=== PATIENT | male | born 1980 | race Caucasian/White ===

== ENCOUNTER 2022-01-04 01:24 | Inpatient (IN) ==
--- NOTE | 2022-01-04 01:58 | Emergency Department Note ---
Impression & Plan Suicidal ideation ADMIT ED Provider Note HPI: Patient is a 41-year-old male with history of schizoaffective disorder, hypertension, arthritis, GERD, presents emergency department after a suicide attempt this evening. Patient tells me that he tried to strangle himself twice with the drawstring from his sweatpants. He states he [facility] this [facility] the [facility]. He called crisis because he tried to do this and was referred to the ED for further evaluation. Patient arrives in stable condition, he does not have any ligature hidalgo to the neck, no open wounds or lacerations, he is resting comfortably on my initial assessment and is calm and cooperative with history. He tells me he does believe he would benefit from inpatient care. He is currently voluntary 201 in the ED. ROS: -Psychiatric: Suicide attempt. *10 point review systems was conducted and is otherwise negative unless stated above *Outpatient medications and allergy history reviewed PE: General: Alert, NAD, obese HEENT: Normocephalic, atraumatic Eyes: Extraocular eye movement is intact, no scleral erythema Pulmonary: Clear to auscultation bilaterally, no wheezing Cardio: Regular rate and rhythm GI: Abdomen is soft, nontender : No suprapubic tenderness MSK: No evidence of trauma or malformation of the extremities, no edema Skin: No evidence of rash Neuro: Alert, no focal deficits Psychiatric: Cooperative Medical Decision Making: Patient presented to the emergency department with a chief complaint of suicidal ideation and he reports an attempt earlier tonight, states that he attempted to strangle himself with a drawstring from his sweatpants. On arrival here to the ED he appears well, he is in no acute distress, he does not have any evidence of injuries to his neck, he is resting comfortably on my initial assessment and is in no acute distress. Patient was medically cleared here in the ED for case management assessment, patient is determined appropriate for voluntary admission, patient was assessed for placement at 3 [address]. and ultimately excepted for further inpatient care. He is in agreement to the above plan and he was admitted in stable condition for further management/inpatient psychiatric care. Diagnosis: 1. Suicide attempt 2. History of schizoaffective disorder Disposition: Admission to psychiatry Gianni Abebe DO Emergency Medicine Past Med/Surg History Medical History (Updated 01/04/22 @ 07:32 by Gianni Abebe DO) GERD (gastroesophageal reflux disease) Hypertension Social History Smoking Status: Unknown if ever smoked Preferred Language: Mongolian Communication Ability: Effective Environmental Compliance Specialist Required: No Beliefs That Will Affect Care: None Feels Safe at Home: Yes Assistive Devices: Glasses Allergies Allergies Allergy/AdvReac Type Severity Reaction Status Date / Time No Known Allergies Allergy Unknown Verified 01/07/08 18:16 Home Meds Home Medications Medication Instructions Recorded Confirmed amlodipine 10 mg tablet 10 mg PO QAM 01/04/22 01/04/22 divalproex 500 mg tablet,extended 500 mg PO QAM 01/04/22 01/04/22 release 24 hr omeprazole 20 mg capsule,delayed 20 mg PO AMHS 01/04/22 01/04/22 release paliperidone palmitate 156 mg/mL 156 mg IM MONTHLY 01/04/22 01/04/22 intramuscular syringe (Invega Sustenna) venlafaxine 75 mg capsule,extended 225 mg PO HS 01/04/22 01/04/22 release 24 hr Results & Data (ED) Vital Signs Vital Signs - 24 hr 01/04/22 01:41 01/04/22 05:12 Temperature 36.6 C Temperature Source Oral Pulse Rate 89 Pulse Rate [Right] 75 Respiratory Rate 20 16 Respiratory Effort / Characteristics Non-Labored Respiratory Depth Normal Blood Pressure [Right Arm] 141/78 H Blood Pressure Mean [Right Arm] 99 Pulse Oximetry 96 94 Oxygen Delivery Method Room Air Room Air Sepsis Recent Fever Within 48 Hours No Sepsis New/Unexplained Change in Mental Status N/A Sepsis Action Taken by Nursing No Action Required Laboratory Data Result diagrams: 01/04/22 01:56 01/04/22 01:56 Lab Results 01/04/22 01/04/22 01/04/22 Range/Units 01:40 01:40 01:56 WBC 7.80 (4.8-10.8) K/uL RBC 4.30 L (4.7-6.1) M/uL Hgb 14.8 (14.0-18.0) g/dL Hct 43.3 (42-52) % MCV 100.7 H (80-100) fL MCH 34.4 H (25-34) pg MCHC 34.2 (32-36) g/dL RDW Std Deviation 46.8 H (36.4-46.3) fL RDW Coeff of Zay 12.9 (11.5-14.5) % Plt Count 287 (130-400) K/uL MPV 9.3 (7.4-10.4) fL Immature Gran % (Auto) 0.1 % Neut % (Auto) 60.2 % Lymph % (Auto) 24.6 % Republic % (Auto) 12.7 % Eos % (Auto) 2.1 % Baso % (Auto) 0.3 % Neut # (Auto) 4.70 (1.4-6.5) K/uL Lymph # (Auto) 1.92 (1.2-3.4) K/uL Republic # (Auto) 0.99 H (0.11-0.59) K/uL Eos # (Auto) 0.16 (0-0.5) K/uL Baso # (Auto) 0.02 (0-0.2) K/uL Immature Gran # (Auto) 0.01 (0.00-0.02) K/uL Sodium (136-145) mmol/L Potassium (3.5-5.1) mmol/L Chloride (98-107) mmol/L Carbon Dioxide (21-32) mmol/L Anion Gap (3-11) BUN (6-23) mg/dl Creatinine (0.6-1.4) mg/dl Est Cr Clr Drug Dosing ml/min Est GFR ( Amer) ml/min Est GFR (Non-Af Amer) ml/min BUN/Creatinine Ratio (10-20) Glucose (70-99(Fasting)) mg/dl Calcium (8.5-10.1) mg/dl Total Bilirubin (0.2-1.0) mg/dl AST (13-39) U/L ALT (7-52) U/L Alkaline Phosphatase (34-104) U/L Total Protein (6.0-8.3) gm/dl Albumin (3.4-5.0) gm/dl Globulin (2.5-4.0) gm/dl Albumin/Globulin Ratio (0.9-2) TSH (0.300-4.500) uIu/ml Urine Color Yellow Urine Appearance Clear (Clear) Urine pH 5.5 (4.5-7.5) Ur Specific Gilbert 1.011 (1.000-1.030) Urine Protein Negative (Negative) Urine Glucose (UA) Negative (Negative) Urine Ketones Negative (Negative) Urine Blood Negative (Negative) Urine Nitrite Negative (Negative) Urine Bilirubin Negative (Negative) Urine Urobilinogen Negative (Negative) Ur Leukocyte Esterase Negative (Negative) Salicylates (3.0-30) mg/dl Urine Opiates Screen Neg (Neg) Ur Methadone, Qual Neg (Neg) Acetaminophen (10-30) ug/ml Urine Barbiturates Neg (Neg) Ur Phencyclidine (PCP) Neg (Neg) U Amphetamin/Meth Scrn Neg (Neg) MDMA (Ecstasy) Screen Neg (Neg) U Benzodiazepines Scrn Neg (Neg) Ur Cocaine Metabolite Neg (Neg) U Marijuana (THC) Screen Neg (Neg) Ethyl Alcohol mg/dL (<10.0) mg/dl 01/04/22 01/04/22 01/04/22 Range/Units 01:56 01:56 01:56 WBC (4.8-10.8) K/uL RBC (4.7-6.1) M/uL Hgb (14.0-18.0) g/dL Hct (42-52) % MCV (80-100) fL MCH (25-34) pg MCHC (32-36) g/dL RDW Std Deviation (36.4-46.3) fL RDW Coeff of Zay (11.5-14.5) % Plt Count (130-400) K/uL MPV (7.4-10.4) fL Immature Gran % (Auto) % Neut % (Auto) % Lymph % (Auto) % Republic % (Auto) % Eos % (Auto) % Baso % (Auto) % Neut # (Auto) (1.4-6.5) K/uL Lymph # (Auto) (1.2-3.4) K/uL Republic # (Auto) (0.11-0.59) K/uL Eos # (Auto) (0-0.5) K/uL Baso # (Auto) (0-0.2) K/uL Immature Gran # (Auto) (0.00-0.02) K/uL Sodium 134 L (136-145) mmol/L Potassium 3.7 (3.5-5.1) mmol/L Chloride 102 (98-107) mmol/L Carbon Dioxide 24 (21-32) mmol/L Anion Gap 8 (3-11) BUN 13 (6-23) mg/dl Creatinine 1.07 (0.6-1.4) mg/dl Est Cr Clr Drug Dosing 149.5 ml/min Est GFR ( Amer) 98.0 ml/min Est GFR (Non-Af Amer) 84.6 ml/min BUN/Creatinine Ratio 12.1 (10-20) Glucose 93 (70-99(Fasting)) mg/dl Calcium 8.8 (8.5-10.1) mg/dl Total Bilirubin 0.7 (0.2-1.0) mg/dl AST 15 (13-39) U/L ALT 17 (7-52) U/L Alkaline Phosphatase 70 (34-104) U/L Total Protein 6.8 (6.0-8.3) gm/dl Albumin 3.9 (3.4-5.0) gm/dl Globulin 2.9 (2.5-4.0) gm/dl Albumin/Globulin Ratio 1.3 (0.9-2) TSH 2.428 (0.300-4.500) uIu/ml Urine Color Urine Appearance (Clear) Urine pH (4.5-7.5) Ur Specific Gilbert (1.000-1.030) Urine Protein (Negative) Urine Glucose (UA) (Negative) Urine Ketones (Negative) Urine Blood (Negative) Urine Nitrite (Negative) Urine Bilirubin (Negative) Urine Urobilinogen (Negative) Ur Leukocyte Esterase (Negative) Salicylates < 3.0 L (3.0-30) mg/dl Urine Opiates Screen (Neg) Ur Methadone, Qual (Neg) Acetaminophen < 3 L (10-30) ug/ml Urine Barbiturates (Neg) Ur Phencyclidine (PCP) (Neg) U Amphetamin/Meth Scrn (Neg) MDMA (Ecstasy) Screen (Neg) U Benzodiazepines Scrn (Neg) Ur Cocaine Metabolite (Neg) U Marijuana (THC) Screen (Neg) Ethyl Alcohol mg/dL (<10.0) mg/dl 01/04/22 Range/Units 01:56 WBC (4.8-10.8) K/uL RBC (4.7-6.1) M/uL Hgb (14.0-18.0) g/dL Hct (42-52) % MCV (80-100) fL MCH (25-34) pg MCHC (32-36) g/dL RDW Std Deviation (36.4-46.3) fL RDW Coeff of Zay (11.5-14.5) % Plt Count (130-400) K/uL MPV (7.4-10.4) fL Immature Gran % (Auto) % Neut % (Auto) % Lymph % (Auto) % Republic % (Auto) % Eos % (Auto) % Baso % (Auto) % Neut # (Auto) (1.4-6.5) K/uL Lymph # (Auto) (1.2-3.4) K/uL Republic # (Auto) (0.11-0.59) K/uL Eos # (Auto) (0-0.5) K/uL Baso # (Auto) (0-0.2) K/uL Immature Gran # (Auto) (0.00-0.02) K/uL Sodium (136-145) mmol/L Potassium (3.5-5.1) mmol/L Chloride (98-107) mmol/L Carbon Dioxide (21-32) mmol/L Anion Gap (3-11) BUN (6-23) mg/dl Creatinine (0.6-1.4) mg/dl Est Cr Clr Drug Dosing ml/min Est GFR ( Amer) ml/min Est GFR (Non-Af Amer) ml/min BUN/Creatinine Ratio (10-20) Glucose (70-99(Fasting)) mg/dl Calcium (8.5-10.1) mg/dl Total Bilirubin (0.2-1.0) mg/dl AST (13-39) U/L ALT (7-52) U/L Alkaline Phosphatase (34-104) U/L Total Protein (6.0-8.3) gm/dl Albumin (3.4-5.0) gm/dl Globulin (2.5-4.0) gm/dl Albumin/Globulin Ratio (0.9-2) TSH (0.300-4.500) uIu/ml Urine Color Urine Appearance (Clear) Urine pH (4.5-7.5) Ur Specific Gilbert (1.000-1.030) Urine Protein (Negative) Urine Glucose (UA) (Negative) Urine Ketones (Negative) Urine Blood (Negative) Urine Nitrite (Negative) Urine Bilirubin (Negative) Urine Urobilinogen (Negative) Ur Leukocyte Esterase (Negative) Salicylates (3.0-30) mg/dl Urine Opiates Screen (Neg) Ur Methadone, Qual (Neg) Acetaminophen (10-30) ug/ml Urine Barbiturates (Neg) Ur Phencyclidine (PCP) (Neg) U Amphetamin/Meth Scrn (Neg) MDMA (Ecstasy) Screen (Neg) U Benzodiazepines Scrn (Neg) Ur Cocaine Metabolite (Neg) U Marijuana (THC) Screen (Neg) Ethyl Alcohol mg/dL < 10.0 (<10.0) mg/dl Discharge Plan Visit Data Chief Complaint: Mental Health Evaluation Stated Complaint: [facility] ED Provider: Gianni Abebe Discharge Problem: Suicidal ideation Patient Disposition: Admitted As Inpatient Discharge Instructions Interventions: ED Discharge Assessment Last Done: 01/04/22 06:38
[2022-01-04 02:09] LABS: Appearance Urine Clear (Clear); Bilirubin Urine Negative (Negative); Blood Urine Negative (Negative); Color Urine Yellow; Glucose Urine UA Negative (Negative); Ketones Urine Negative (Negative); Leukocyte Esterase Urine Negative (Negative); Nitrite Urine Negative (Negative); Protein Urine Negative (Negative); Specific Gravity Urine 1.011 (1.000-1.030); Urobilinogen Urine Negative (Negative); pH Urine 5.5 (4.5-7.5)
[2022-01-04 02:10] LABS: Basophils # (auto) 0.02 K/uL (0-0.2); Basophils % (auto) 0.3 %; Eosinophils # (auto) 0.16 K/uL (0-0.5); Eosinophils % (auto) 2.1 %; Hematocrit (blood only) 43.3 % (42-52); Hemoglobin 14.8 g/dL (14.0-18.0); Immature Granulocytes # (auto) 0.01 K/uL (0.00-0.02); Immature Granulocytes % (auto) 0.1 %; Lymphocytes # (auto) 1.92 K/uL (1.2-3.4); Lymphocytes % (auto) 24.6 %; Mean Corpuscular Hemoglobin 34.4 pg (25-34); Mean Corpuscular Hgb Conc 34.2 g/dL (32-36); Mean Corpuscular Volume 100.7 fL (80-100); Mean Platelet Volume 9.3 fL (7.4-10.4); Monocytes # (auto) 0.99 K/uL (0.11-0.59); Monocytes % (auto) 12.7 %; Neutrophils % (auto) 60.2 %; Platelet Count 287 K/uL (130-400); RDW Coefficient of Variation 12.9 % (11.5-14.5); RDW Standard Deviation 46.8 fL (36.4-46.3)
[2022-01-04 02:25] LABS: Albumin Globulin Ratio 1.3 (0.9-2); Albumin Level 3.9 gm/dl (3.4-5.0); BUN Creatinine Ratio 12.1 (10-20); Bilirubin,Total 0.7 mg/dl (0.2-1.0); Calcium 8.8 mg/dl (8.5-10.1); Creatinine Clr Calc Pharmacy 149.5 ml/min; Est GFR (Non-African American) 84.6 ml/min; Globulin 2.9 gm/dl (2.5-4.0); Potassium 3.7 mmol/L (3.5-5.1); Total Protein 6.8 gm/dl (6.0-8.3)
[2022-01-04 02:26] LABS: Acetaminophen < 3 ug/ml (10-30); Salicylate < 3.0 mg/dl (3.0-30)
[2022-01-04 02:28] LABS: Amphetamines+Metham, Urine Neg (Neg); Barbiturates, Urine Neg (Neg); Benzodiazepine, Urine Neg (Neg); Cocaine, Urine Neg (Neg); MDMA (Ecstacy), Urine Neg (Neg); Methadone, Urine Neg (Neg); Opiate, Urine Neg (Neg); Phencyclidine, Urine Neg (Neg)
[2022-01-04] MEDS ORDERED: hydrOXYzine HCl 25 MG TAB PO PRN ×2 (07:11)
[2022-01-04] MEDS ORDERED: BISMUTH SUBSALICYLATE LIQD 236 ML PO PRN (07:11)
[2022-01-04] MEDS ORDERED: ALUMINUM/MAGNESIUM SUSP 30 ML UDC PO PRN (07:11)
[2022-01-04] MEDS ORDERED: ACETAMINOPHEN 325 MG TAB PO PRN (07:11)
[2022-01-04] MEDS ORDERED: MAGNESIUM HYDROXIDE SUSP 30 ML UDC PO PRN (07:11)
[2022-01-04] MEDS ORDERED: SODIUM CHLORIDE 0.65% NA SOLN 45 ML (OCEAN) PRN (07:11)
[2022-01-04] MEDS: PANTOprazole 40 MG TAB PO SCH ×2 (12:50→20:48)
[2022-01-04] MEDS: DIVALPROEX EXTENDED RELEASE 500 MG TAB PO SCH (12:50)
[2022-01-04] MEDS: amLODIPine BESYLATE 5 MG TAB PO SCH (12:51)
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
[2022-01-04] MEDS: VENLAFAXINE HCL XR 75 MG CAPXR PO SCH (20:48)
[2022-01-04] MEDS: DIVALPROEX EXTENDED RELEASE 250 MG TABCR PO SCH (20:48)
[2022-01-05] MEDS: DIVALPROEX EXTENDED RELEASE 500 MG TAB PO SCH (09:00)
[2022-01-05] MEDS: PANTOprazole 40 MG TAB PO SCH ×2 (09:01→21:17)
[2022-01-05] MEDS: amLODIPine BESYLATE 5 MG TAB PO SCH (09:01)
--- NOTE | 2022-01-05 16:36 | Psychiatric Progress Note ---
Date of Service January 05, 2022 Impression / Recommendations Impression 41 yo male with schizoaffective disorder, reactive depression 01/05/22: no change (1) Schizoaffective disorder: (2) Morbid obesity: 01/05/22: continue current meds and treatment plan. 01/04/22: The patient was admitted to the [facility] ([facility] health unit) on q15 min checks (behavioral with suicide precautions) for safety. The patient will participate in group, recreational, and milieu therapies and will be offered additional individual and family sessions as clinically appropriate. Risks/benefits/alternatives reviewed re: his current medications. Discussion included but was not limited to need for longer term monitoring with Depakote and Invega (received sustenna on 12/17/21), particularly for TD and metabolic. As he missed several doses of Depakote within the last 5 days will wait to get level and add metabolic screenings at that time. He should have PCP f/u for consideration for repeat sleep study. Risk Factors Assessment Male: Yes : Yes Do You Have Access To A Gun?: No Mental Health Diagnoses: Yes Substance Use Disorders: No Previous Attempt: Yes Previous Psychiatric Hospitalization: Yes Protective Factors Assessment Responsible for Young Children: No Employed: No Stable Relationships: No Interval History Identifying Information ROBERTO CAMARILLO is a 41-year-old M, resident of [place], has a history of multiple hospitalizations for schizoaffective disorder, and was admitted on 01/04/22 06:23 on a 201 voluntary commitment for suicidal gesture. Chief Complaint "I'm pretty much the same." Review of Systems Sleep Information Total Hours of Sleep: 6.5 Sleep Comments: pt on q-15 minute checks Meal Information Percent Meal Consumed - Breakfast: 100 Percent Meal Consumed - Lunch: 100 Percent Meal Consumed - Dinner: 100 Subjective Subjective Patient was seen & assessed and interval progress reviewed with treatment team. Patient has difficulty connecting with co--patients but no true peers on unit at this time. Remains hopeless about his housing situation. Med compliant. Physical Exam Psychiatric Orientation: alert and oriented x 3 Apperance: + disheveled Eye Contact: + fair eye contact Motor Behavior: no abnormal motor movements Speech: normal rate/rhythm/volume of speech Affect: + depressed affect Mood: + depressed mood Thought Process: + concrete thought process Thought Content: reality based without delusions Suicidal Thoughts: denies suicidal plan and denies suicidal intent; + reports suicidal thoughts (passive, intermittent) Homicidal Thoughts: denies homicidal thoughts Hallucinations: no auditory hallucinations and no visual hallucinations Cognition: attention grossly intact and language grossly intact Estimated Intelligence: + below average estimated intelligence Insight: + limited insight Judgement: + limited judgement Vital Signs (Past 24 Hours) Last Vital Signs Temp 37 C 01/05/22 06:42 Pulse 79 01/05/22 06:43 Resp 18 01/05/22 06:42 BP 138/82 01/05/22 06:43 Pulse Ox 94 01/04/22 07:18 Results & Data ([facility]) Current Inpatient Medications Current Inpatient Medications: Current Inpatient Medications Acetaminophen (Acetaminophen 325 Mg Tab) 650 mg PO Q4H PRN PRN Reason: Headache or Minor Fever Stop: 02/03/22 07:10 Al Hydrox/Mg Hydrox/Simethicone (Aluminum/Magnesium Susp 30 Ml Udc) 30 ml PO Q4H PRN PRN Reason: GI Upset Stop: 02/03/22 07:10 Amlodipine Besylate (Amlodipine Besylate 5 Mg Tab) 10 mg PO QAM JULISSA Stop: 02/03/22 11:59 Last Admin: 01/05/22 09:01 Dose: 10 mg Documented by: Bismuth Subsalicylate (Bismuth Subsalicylate Liqd 236 Ml) 15 ml PO PRN PRN PRN Reason: Loose Stool Stop: 02/03/22 07:10 Divalproex Sodium (Divalproex Extended Release 500 Mg Tab) 500 mg PO QAM JULISSA Stop: 02/03/22 11:59 Last Admin: 01/05/22 09:00 Dose: 500 mg Documented by: Divalproex Sodium (Divalproex Extended Release 250 Mg Tabcr) 750 mg PO HS JULISSA Stop: 02/03/22 21:59 Last Admin: 01/04/22 20:48 Dose: 750 mg Documented by: Hydroxyzine HCl (Hydroxyzine Hcl 25 Mg Tab) 50 mg PO HSZ PRN PRN Reason: Insomnia Stop: 02/03/22 07:10 Hydroxyzine HCl (Hydroxyzine Hcl 25 Mg Tab) 25 mg PO Q4H PRN PRN Reason: Anxiety Stop: 02/03/22 07:10 Magnesium Hydroxide (Magnesium Hydroxide Susp 30 Ml Udc) 30 ml PO DAILY PRN PRN Reason: Constipation Stop: 02/03/22 07:10 Pantoprazole Sodium (Pantoprazole 40 Mg Tab) 40 mg PO BID JULISSA Stop: 02/03/22 11:59 Last Admin: 01/05/22 09:01 Dose: 40 mg Documented by: Sodium Chloride (Sodium Chloride 0.65% Na Soln 45 Ml ([place])) 1 - 2 sprays NA PRN PRN PRN Reason: Nasal Dryness/Congestion Stop: 02/03/22 07:10 Venlafaxine HCl (Venlafaxine Hcl Xr 75 Mg Capxr) 225 mg PO HS JULISSA Stop: 02/03/22 21:59 Last Admin: 01/04/22 20:48 Dose: 225 mg Documented by: Mental Health & Subst Abuse Tx Psychiatrist Name of Psychiatrist: Stiven Gavin PA-C Psychiatrist's Date of Appointment with Psychiatrist: 01/12/22 Time of Appointment with Psychiatrist: 9:00am Psychiatric Appointment Comment: [facility] Therapist Name of Therapist: None current Surveillance Director Name of Surveillance Director: MATHEW Spann Phone Number for Surveillance Director: [phone] Post Discharge Appointments Primary Care Physician Name Of Family Doctor: David Estrada Primary Care Date of Appointment with PCP: 01/13/22 Time of Appointment with PCP: 9:25 a.m. Provider Appointment Comment: [facility] Contact Information Discharge Discharge Address: [address] [place] [address]
[2022-01-05] MEDS ORDERED: NICOTINE POLACRILEX 2 MG GUM MT PRN (17:12)
[2022-01-05] MEDS: NICOTINE POLACRILEX 2 MG GUM MT PRN (20:51)
[2022-01-05] MEDS: DIVALPROEX EXTENDED RELEASE 250 MG TABCR PO SCH (21:17)
[2022-01-05] MEDS: VENLAFAXINE HCL XR 75 MG CAPXR PO SCH (21:18)
[2022-01-06] MEDS: amLODIPine BESYLATE 5 MG TAB PO SCH (08:25)
[2022-01-06] MEDS: DIVALPROEX EXTENDED RELEASE 500 MG TAB PO SCH (08:26)
[2022-01-06] MEDS: PANTOprazole 40 MG TAB PO SCH ×2 (08:26→21:07)
--- NOTE | 2022-01-06 12:02 | Psychiatric Progress Note ---
Date of Service January 06, 2022 Impression / Recommendations Impression 41 yo male with schizoaffective disorder, reactive depression 01/06/22: some improvement in interpersonal interactions (1) Schizoaffective disorder: (2) Morbid obesity: 01/06/22: Depakote level and fasting labs in the am. 01/05/22: continue current meds and treatment plan. 01/04/22: The patient was admitted to the [facility] on q15 min checks (behavioral with suicide precautions) for safety. The patient will participate in group, recreational, and milieu therapies and will be offered additional individual and family sessions as clinically appropriate. Risks/benefits/alternatives reviewed re: his current medications. Discussion included but was not limited to need for longer term monitoring with Depakote and Invega (received sustenna on 12/17/21), particularly for TD and metabolic. As he missed several doses of Depakote within the last 5 days will wait to get level and add metabolic screenings at that time. He should have PCP f/u for consideration for repeat sleep study. Suicide Risk Level Suicide Risk Level: Moderate (q15 min suicide checks) Risk Factors Assessment Male: Yes : Yes Do You Have Access To A Gun?: No Mental Health Diagnoses: Yes Substance Use Disorders: No Previous Attempt: Yes Previous Psychiatric Hospitalization: Yes Protective Factors Assessment Responsible for Young Children: No Employed: No Stable Relationships: No Interval History Identifying Information ROBERTO CAMARILLO is a 41-year-old M, resident of [place], has a history of multiple hospitalizations for schizoaffective disorder, and was admitted on 01/04/22 06:23 on a 201 voluntary commitment for suicidal gesture. Chief Complaint "I'm tired today, just want to know about my cat". Review of Systems Sleep Information Total Hours of Sleep: 6 Sleep Comments: pt on q-15 minute checks Meal Information Percent Meal Consumed - Breakfast: 100 Percent Meal Consumed - Lunch: 100 Percent Meal Consumed - Dinner: 100 Subjective Subjective Patient was seen & assessed and interval progress reviewed with nursing and social work. Patient in bed this am rather than community meeting but was more active last evening. He has been having incontinence of stool in his bed per staff but he denies. Physical Exam Psychiatric Orientation: alert and oriented x 3 Apperance: + disheveled Eye Contact: + fair eye contact Motor Behavior: no abnormal motor movements Speech: normal rate/rhythm/volume of speech Affect: + depressed affect Mood: + depressed mood Thought Process: + concrete thought process Thought Content: reality based without delusions Suicidal Thoughts: denies suicidal thoughts ("but really outside of here nothing has changed"), denies suicidal plan and denies suicidal intent Homicidal Thoughts: denies homicidal thoughts Hallucinations: no auditory hallucinations and no visual hallucinations Cognition: attention grossly intact and language grossly intact Estimated Intelligence: + below average estimated intelligence Insight: + limited insight Judgement: + limited judgement Vital Signs (Past 24 Hours) Last Vital Signs Temp 36.9 C 01/06/22 06:51 Pulse 66 01/06/22 06:51 Resp 16 01/06/22 06:51 BP 136/95 01/06/22 06:51 Pulse Ox 94 01/04/22 07:18 Results & Data ([facility]) Current Inpatient Medications Current Inpatient Medications: Current Inpatient Medications Acetaminophen (Acetaminophen 325 Mg Tab) 650 mg PO Q4H PRN PRN Reason: Headache or Minor Fever Stop: 02/03/22 07:10 Al Hydrox/Mg Hydrox/Simethicone (Aluminum/Magnesium Susp 30 Ml Udc) 30 ml PO Q4H PRN PRN Reason: GI Upset Stop: 02/03/22 07:10 Amlodipine Besylate (Amlodipine Besylate 5 Mg Tab) 10 mg PO QAM JULISSA Stop: 02/03/22 11:59 Last Admin: 01/06/22 08:25 Dose: 10 mg Documented by: Bismuth Subsalicylate (Bismuth Subsalicylate Liqd 236 Ml) 15 ml PO PRN PRN PRN Reason: Loose Stool Stop: 02/03/22 07:10 Divalproex Sodium (Divalproex Extended Release 500 Mg Tab) 500 mg PO QAM JULISSA Stop: 02/03/22 11:59 Last Admin: 01/06/22 08:26 Dose: 500 mg Documented by: Divalproex Sodium (Divalproex Extended Release 250 Mg Tabcr) 750 mg PO HS JULISSA Stop: 02/03/22 21:59 Last Admin: 01/05/22 21:17 Dose: 750 mg Documented by: Hydroxyzine HCl (Hydroxyzine Hcl 25 Mg Tab) 50 mg PO HSZ PRN PRN Reason: Insomnia Stop: 02/03/22 07:10 Hydroxyzine HCl (Hydroxyzine Hcl 25 Mg Tab) 25 mg PO Q4H PRN PRN Reason: Anxiety Stop: 02/03/22 07:10 Magnesium Hydroxide (Magnesium Hydroxide Susp 30 Ml Udc) 30 ml PO DAILY PRN PRN Reason: Constipation Stop: 02/03/22 07:10 Nicotine Polacrilex (Nicotine Polacrilex 2 Mg Gum) 1 piece MT Q1H PRN PRN Reason: Smoking cessation Stop: 02/04/22 17:41 Last Admin: 01/05/22 20:51 Dose: 1 piece Documented by: Pantoprazole Sodium (Pantoprazole 40 Mg Tab) 40 mg PO BID JULISSA Stop: 02/03/22 11:59 Last Admin: 01/06/22 08:26 Dose: 40 mg Documented by: Sodium Chloride (Sodium Chloride 0.65% Na Soln 45 Ml ([place])) 1 - 2 sprays NA PRN PRN PRN Reason: Nasal Dryness/Congestion Stop: 02/03/22 07:10 Venlafaxine HCl (Venlafaxine Hcl Xr 75 Mg Capxr) 225 mg PO HS JULISSA Stop: 02/03/22 21:59 Last Admin: 01/05/22 21:18 Dose: 225 mg Documented by: Mental Health & Subst Abuse Tx Psychiatrist Name of Psychiatrist: Stiven Gavin PA-C Psychiatrist's Date of Appointment with Psychiatrist: 01/12/22 Time of Appointment with Psychiatrist: 9:00am Psychiatric Appointment Comment: [address] [facility] Therapist Name of Therapist: None current Technical Communicator Name of Technical Communicator: MATHEW Spann Phone Number for Technical Communicator: [phone] Post Discharge Appointments Primary Care Physician Name Of Family Doctor: David Estrada Primary Care Date of Appointment with PCP: 01/13/22 Time of Appointment with PCP: 9:25 a.m. Provider Appointment Comment: [address] Contact Information Discharge Discharge Address: [address] [place] [address]
[2022-01-06] MEDS: VENLAFAXINE HCL XR 75 MG CAPXR PO SCH (21:06)
[2022-01-06] MEDS: DIVALPROEX EXTENDED RELEASE 250 MG TABCR PO SCH (21:07)
[2022-01-07 08:31] LABS: Chol HDL Ratio 4.5 (0-5)
[2022-01-07] MEDS: amLODIPine BESYLATE 5 MG TAB PO SCH (08:32)
[2022-01-07] MEDS: PANTOprazole 40 MG TAB PO SCH ×2 (08:33→21:43)
[2022-01-07] MEDS: DIVALPROEX EXTENDED RELEASE 500 MG TAB PO SCH (08:33)
--- NOTE | 2022-01-07 13:15 | Psychiatric Progress Note ---
Date of Service January 07, 2022 Impression / Recommendations Impression 41 yo male with schizoaffective disorder, reactive depression 01/07/22: more depressed today. (1) Schizoaffective disorder: (2) Morbid obesity: 01/07/22: Depakote level 53, may have been a day 4 trough rather than day 5, regardless patient has not been exhibiting irritability or lability, mainly depression. Remains ambivalent about antidepressant trial. Reviewed that Dr. Kee can provide a second opinion to him tomorrow as assuming coverage for service at 1700. 01/06/22: Depakote level and fasting labs in the am. 01/05/22: continue current meds and treatment plan. 01/04/22: The patient was admitted to the [facility] ([facility] health unit) on q15 min checks (behavioral with suicide precautions) for safety. The patient will participate in group, recreational, and milieu therapies and will be offered additional individual and family sessions as clinically appropriate. Risks/benefits/alternatives reviewed re: his current medications. Discussion included but was not limited to need for longer term monitoring with Depakote and Invega (received sustenna on 12/17/21), particularly for TD and metabolic. As he missed several doses of Depakote within the last 5 days will wait to get level and add metabolic screenings at that time. He should have PCP f/u for consideration for repeat sleep study. Suicide Risk Level Suicide Risk Level: Moderate (q15 min suicide checks) Risk Factors Assessment Male: Yes : Yes Do You Have Access To A Gun?: No Mental Health Diagnoses: Yes Substance Use Disorders: No Previous Attempt: Yes Previous Psychiatric Hospitalization: Yes Protective Factors Assessment Responsible for Young Children: No Employed: No Stable Relationships: No Interval History Identifying Information ROBERTO CAMARILLO is a 41-year-old M, resident of [place], has a history of multiple hospitalizations for schizoaffective disorder, and was admitted on 01/04/22 06:23 on a 201 voluntary commitment for suicidal gesture. Chief Complaint "I don't understand why I can't have my cat." Review of Systems Sleep Information Total Hours of Sleep: 5.5 Sleep Comments: pt on q-15 minute checks Meal Information Percent Meal Consumed - Breakfast: 100 Percent Meal Consumed - Lunch: 100 Percent Meal Consumed - Dinner: 100 Subjective Subjective Patient was seen & assessed and interval progress reviewed with treatment team. Determination of health unit supervisor at his boarding home is that patient does not keep his room to a condition that appropriate for a cat to stay there. Patient was visibly disappointed with this news, even knowing that the cat can visit (tearful with the news). Logistics are complicated anyway as main transportation relies on is a cousin in [place], cat is in [facility]. He cannot tolerate his former roommates for a visit there. Reviewed his labs. Patient very ambivalent about medication changes. Physical Exam Psychiatric Orientation: alert and oriented x 3 Apperance: + disheveled Eye Contact: + fair eye contact Motor Behavior: no abnormal motor movements Speech: normal rate/rhythm/volume of speech Affect: + depressed affect Mood: + depressed mood Thought Process: + concrete thought process Thought Content: reality based without delusions Suicidal Thoughts: denies suicidal plan and denies suicidal intent; + reports suicidal thoughts (passive due to unfairness of life) Homicidal Thoughts: denies homicidal thoughts Hallucinations: no auditory hallucinations and no visual hallucinations Cognition: attention grossly intact and language grossly intact Estimated Intelligence: + below average estimated intelligence Insight: + limited insight Judgement: + limited judgement Vital Signs (Past 24 Hours) Last Vital Signs Temp 36.5 C 01/07/22 06:38 Pulse 75 01/07/22 06:38 Resp 18 01/07/22 06:38 BP 121/79 01/07/22 06:38 Pulse Ox 94 01/04/22 07:18 Results & Data ([facility]) Laboratory Results Laboratory Results - last 24 hr 01/07/22 01/07/22 07:37 07:37 Fasting Glucose 90 Triglycerides 128 Cholesterol 162 LDL Cholesterol, Calc 100 VLDL Cholesterol, Calc 26 HDL Cholesterol 36 Cholesterol/HDL Ratio 4.5 Valproic Acid 53 Current Inpatient Medications Current Inpatient Medications: Current Inpatient Medications Acetaminophen (Acetaminophen 325 Mg Tab) 650 mg PO Q4H PRN PRN Reason: Headache or Minor Fever Stop: 02/03/22 07:10 Al Hydrox/Mg Hydrox/Simethicone (Aluminum/Magnesium Susp 30 Ml Udc) 30 ml PO Q4H PRN PRN Reason: GI Upset Stop: 02/03/22 07:10 Amlodipine Besylate (Amlodipine Besylate 5 Mg Tab) 10 mg PO QAM JULISSA Stop: 02/03/22 11:59 Last Admin: 01/07/22 08:32 Dose: 10 mg Documented by: Bismuth Subsalicylate (Bismuth Subsalicylate Liqd 236 Ml) 15 ml PO PRN PRN PRN Reason: Loose Stool Stop: 02/03/22 07:10 Divalproex Sodium (Divalproex Extended Release 500 Mg Tab) 500 mg PO QAM JULISSA Stop: 02/03/22 11:59 Last Admin: 01/07/22 08:33 Dose: 500 mg Documented by: Divalproex Sodium (Divalproex Extended Release 250 Mg Tabcr) 750 mg PO HS JULISSA Stop: 02/03/22 21:59 Last Admin: 01/06/22 21:07 Dose: 750 mg Documented by: Hydroxyzine HCl (Hydroxyzine Hcl 25 Mg Tab) 50 mg PO HSZ PRN PRN Reason: Insomnia Stop: 02/03/22 07:10 Hydroxyzine HCl (Hydroxyzine Hcl 25 Mg Tab) 25 mg PO Q4H PRN PRN Reason: Anxiety Stop: 02/03/22 07:10 Magnesium Hydroxide (Magnesium Hydroxide Susp 30 Ml Udc) 30 ml PO DAILY PRN PRN Reason: Constipation Stop: 02/03/22 07:10 Nicotine Polacrilex (Nicotine Polacrilex 2 Mg Gum) 1 piece MT Q1H PRN PRN Reason: Smoking cessation Stop: 02/04/22 17:41 Last Admin: 01/05/22 20:51 Dose: 1 piece Documented by: Pantoprazole Sodium (Pantoprazole 40 Mg Tab) 40 mg PO BID JULISSA Stop: 02/03/22 11:59 Last Admin: 01/07/22 08:33 Dose: 40 mg Documented by: Sodium Chloride (Sodium Chloride 0.65% Na Soln 45 Ml ([place])) 1 - 2 sprays NA PRN PRN PRN Reason: Nasal Dryness/Congestion Stop: 02/03/22 07:10 Venlafaxine HCl (Venlafaxine Hcl Xr 75 Mg Capxr) 225 mg PO HS JULISSA Stop: 02/03/22 21:59 Last Admin: 01/06/22 21:06 Dose: 225 mg Documented by: Mental Health & Subst Abuse Tx Psychiatrist Name of Psychiatrist: Stiven Gavin PA-C Psychiatrist's Date of Appointment with Psychiatrist: 01/12/22 Time of Appointment with Psychiatrist: 9:00am Psychiatric Appointment Comment: [address] [facility] Therapist Name of Therapist: None current Poultry Buyer Name of Poultry Buyer: MATHEW Spann Phone Number for Poultry Buyer: [phone] Post Discharge Appointments Primary Care Physician Name Of Family Doctor: David Estrada Primary Care Date of Appointment with PCP: 01/13/22 Time of Appointment with PCP: 9:25 a.m. Provider Appointment Comment: [address] Contact Information Discharge Discharge Address: [address] [place] [address]
[2022-01-07] MEDS: DIVALPROEX EXTENDED RELEASE 250 MG TABCR PO SCH (21:43)
[2022-01-07] MEDS: VENLAFAXINE HCL XR 75 MG CAPXR PO SCH (21:43)
[2022-01-08] MEDS: DIVALPROEX EXTENDED RELEASE 500 MG TAB PO SCH (09:02)
[2022-01-08] MEDS: amLODIPine BESYLATE 5 MG TAB PO SCH (09:02)
[2022-01-08] MEDS: PANTOprazole 40 MG TAB PO SCH ×2 (09:02→21:36)
--- NOTE | 2022-01-08 16:57 | Psychiatric Progress Note ---
Date of Service January 08, 2022 Impression / Recommendations Impression 41 yo man with schizoaffective disorder, reactive depression in context of not being able to have his cat at his halfway. Diagnostically consistent with schizoaffective disorder with depressed mood as well some grief related to not being able to have his cat. The patient is deemed unstable and requires psychiatric hospitalization for diagnostic clarification, safety and stabilization, medication management and development of further coping skills. MNPR due to poor attention to hygiene and increased irritability 01/08/22: remains very depressed and hopeless with limited ability to utilize coping skills. Reviewed potential ways to cope with emotions related to grief. He does not want to consider any medication changes, tolerating his medications without any side effects. He consents to having melatonin prn for sleep onset insomnia. Possibility for SAMI also contributing to this. (1) Schizoaffective disorder: (2) Morbid obesity: 01/08/22: Continue current medications and tx plan. 01/07/22: Depakote level 53, may have been a day 4 trough rather than day 5, regardless patient has not been exhibiting irritability or lability, mainly depression. Remains ambivalent about antidepressant trial. Reviewed that Dr. Kee can provide a second opinion to him tomorrow as assuming coverage for service at 1700. 01/06/22: Depakote level and fasting labs in the am. 01/05/22: continue current meds and treatment plan. 01/04/22: The patient was admitted to the [facility] ([facility] mental health unit) on q15 min checks (behavioral with suicide precautions) for safety. The patient will participate in group, recreational, and milieu therapies and will be offered additional individual and family sessions as clinically appropriate. Risks/benefits/alternatives reviewed re: his current medications. Discussion included but was not limited to need for longer term monitoring with Depakote and Invega (received sustenna on 12/17/21), particularly for TD and metabolic. As he missed several doses of Depakote within the last 5 days will wait to get level and add metabolic screenings at that time. He should have PCP f/u for consideration for repeat sleep study. Suicide Risk Level Suicide Risk Level: Moderate (q15 min suicide checks) Suicide Risk Level Comments: Continues to have depressed mood with hopelessness and grief with periods of passive SI but feels safe in the hospital and denies plan or intent. Risk Factors Assessment Male: Yes : Yes Do You Have Access To A Gun?: No Mental Health Diagnoses: Yes Substance Use Disorders: No Previous Attempt: Yes Previous Psychiatric Hospitalization: Yes Protective Factors Assessment Responsible for Young Children: No Employed: No Stable Relationships: No Interval History Identifying Information SANTOS CAMARILLO is a 41-year-old M, resident of [place], has a history of multiple hospitalizations for schizoaffective disorder, and was admitted on 01/04/22 06:23 on a 201 voluntary commitment for suicidal gesture. Chief Complaint "not very good". Review of Systems Sleep Information Total Hours of Sleep: 6.75 Sleep Comments: pt on q-15 minute checks Meal Information Percent Meal Consumed - Breakfast: 100 Percent Meal Consumed - Lunch: 100 Percent Meal Consumed - Dinner: 100 Subjective Subjective Patient was seen & assessed and interval progress reviewed with treatment team nursing and social work. Santos remains very upset over not being able to have his cat at [place] where he lives. Today expressed more irritability and frustration related to this. Continues to express some hopelessness and difficulty using coping skills to manage disappointment and grief related to this. He is not interested in trying an alternative medication for mood, wants to continue with Effexor XR and likes Depakote and Invega COVARRUBIAS. Had some trouble falling asleep, wants to consider option of melatonin. Physical Exam Psychiatric Orientation: alert and oriented x 3 Apperance: + disheveled Eye Contact: + fair eye contact Motor Behavior: no abnormal motor movements Speech: normal rate/rhythm/volume of speech Affect: + depressed affect Mood: + depressed mood Thought Process: + concrete thought process Thought Content: reality based without delusions Suicidal Thoughts: denies suicidal plan and denies suicidal intent; + reports suicidal thoughts (passive due to unfairness of life) Homicidal Thoughts: denies homicidal thoughts Hallucinations: no auditory hallucinations and no visual hallucinations Cognition: attention grossly intact and language grossly intact Estimated Intelligence: + below average estimated intelligence Insight: + limited insight Judgement: + limited judgement Vital Signs (Past 24 Hours) Last Vital Signs Temp 36.9 C 01/08/22 06:47 Pulse 97 H 01/08/22 06:49 Resp 18 01/08/22 06:47 BP 111/79 01/08/22 06:49 Pulse Ox 94 01/04/22 07:18 Results & Data ([facility]) Current Inpatient Medications Current Inpatient Medications: Current Inpatient Medications Acetaminophen (Acetaminophen 325 Mg Tab) 650 mg PO Q4H PRN PRN Reason: Headache or Minor Fever Stop: 02/03/22 07:10 Al Hydrox/Mg Hydrox/Simethicone (Aluminum/Magnesium Susp 30 Ml Udc) 30 ml PO Q4H PRN PRN Reason: GI Upset Stop: 02/03/22 07:10 Amlodipine Besylate (Amlodipine Besylate 5 Mg Tab) 10 mg PO QAM JULISSA Stop: 02/03/22 11:59 Last Admin: 01/08/22 09:02 Dose: 10 mg Documented by: Bismuth Subsalicylate (Bismuth Subsalicylate Liqd 236 Ml) 15 ml PO PRN PRN PRN Reason: Loose Stool Stop: 02/03/22 07:10 Divalproex Sodium (Divalproex Extended Release 500 Mg Tab) 500 mg PO QAM [facility] Stop: 02/03/22 11:59 Last Admin: 01/08/22 09:02 Dose: 500 mg Documented by: Divalproex Sodium (Divalproex Extended Release 250 Mg Tabcr) 750 mg PO HS JULISSA Stop: 02/03/22 21:59 Last Admin: 01/07/22 21:43 Dose: 750 mg Documented by: Hydroxyzine HCl (Hydroxyzine Hcl 25 Mg Tab) 50 mg PO HSZ PRN PRN Reason: Insomnia Stop: 02/03/22 07:10 Hydroxyzine HCl (Hydroxyzine Hcl 25 Mg Tab) 25 mg PO Q4H PRN PRN Reason: Anxiety Stop: 02/03/22 07:10 Magnesium Hydroxide (Magnesium Hydroxide Susp 30 Ml Udc) 30 ml PO DAILY PRN PRN Reason: Constipation Stop: 02/03/22 07:10 Nicotine Polacrilex (Nicotine Polacrilex 2 Mg Gum) 1 piece MT Q1H PRN PRN Reason: Smoking cessation Stop: 02/04/22 17:41 Last Admin: 01/05/22 20:51 Dose: 1 piece Documented by: Pantoprazole Sodium (Pantoprazole 40 Mg Tab) 40 mg PO BID JULISSA Stop: 02/03/22 11:59 Last Admin: 01/08/22 09:02 Dose: 40 mg Documented by: Sodium Chloride (Sodium Chloride 0.65% Na Soln 45 Ml ([place])) 1 - 2 sprays NA PRN PRN PRN Reason: Nasal Dryness/Congestion Stop: 02/03/22 07:10 Venlafaxine HCl (Venlafaxine Hcl Xr 75 Mg Capxr) 225 mg PO HS JULISSA Stop: 02/03/22 21:59 Last Admin: 01/07/22 21:43 Dose: 225 mg Documented by: Mental Health & Subst Abuse Tx Psychiatrist Name of Psychiatrist: Stiven Gavin PA-C Psychiatrist's Date of Appointment with Psychiatrist: 01/12/22 Time of Appointment with Psychiatrist: 9:00am Psychiatric Appointment Comment: [address] [facility] Therapist Name of Therapist: None current Concrete Pipe Machine Operator Name of Concrete Pipe Machine Operator: MATHEW Spann Phone Number for Concrete Pipe Machine Operator: [phone] Post Discharge Appointments Primary Care Physician Name Of Family Doctor: David Estrada Primary Care Date of Appointment with PCP: 01/13/22 Time of Appointment with PCP: 9:25 a.m. Provider Appointment Comment: [address] [facility] Contact Information Discharge Discharge Address: [address] [place] [id number]
[2022-01-08] MEDS ORDERED: MELATONIN 3 MG TAB PO PRN (16:58)
[2022-01-08] MEDS: NICOTINE POLACRILEX 2 MG GUM MT PRN (21:04)
[2022-01-08] MEDS: VENLAFAXINE HCL XR 75 MG CAPXR PO SCH (21:34)
[2022-01-08] MEDS: DIVALPROEX EXTENDED RELEASE 250 MG TABCR PO SCH (21:35)
[2022-01-09] MEDS: PANTOprazole 40 MG TAB PO SCH ×2 (08:39→21:13)
[2022-01-09] MEDS: amLODIPine BESYLATE 5 MG TAB PO SCH (08:40)
[2022-01-09] MEDS: DIVALPROEX EXTENDED RELEASE 500 MG TAB PO SCH (08:40)
--- NOTE | 2022-01-09 09:08 | Psychiatric Progress Note ---
Date of Service January 09, 2022 Impression / Recommendations Impression 41 yo man with schizoaffective disorder, reactive depression in context of not being able to have his cat at his retirement. Diagnostically consistent with schizoaffective disorder with depressed mood as well some grief related to not being able to have his cat. The patient is deemed unstable and requires psychiatric hospitalization for diagnostic clarification, safety and stabilization, medication management and development of further coping skills. MNPR due to poor attention to hygiene and increased irritability 01/09/22: remains very depressed and hopeless with limited ability to utilize coping skills but finding groups helpful which is slight improvement today. Ongoing motivational interviewing and support regarding his cat and grief process. He feels his medications are stable and is not interested in making any changes. (1) Schizoaffective disorder: (2) Morbid obesity: 01/09/22: Continue current medications and tx plan. 01/08/22: Continue current medications and tx plan. 01/07/22: Depakote level 53, may have been a day 4 trough rather than day 5, regardless patient has not been exhibiting irritability or lability, mainly depression. Remains ambivalent about antidepressant trial. Reviewed that Dr. Kee can provide a second opinion to him tomorrow as assuming coverage for service at 1700. 01/06/22: Depakote level and fasting labs in the am. 01/05/22: continue current meds and treatment plan. 01/04/22: The patient was admitted to the [facility] ([facility] mental health unit) on q15 min checks (behavioral with suicide precautions) for safety. The patient will participate in group, recreational, and milieu therapies and will be offered additional individual and family sessions as clinically appropriate. Risks/benefits/alternatives reviewed re: his current medications. Discussion included but was not limited to need for longer term monitoring with Depakote and Invega (received sustenna on 12/17/21), particularly for TD and metabolic. As he missed several doses of Depakote within the last 5 days will wait to get level and add metabolic screenings at that time. He should have PCP f/u for consideration for repeat sleep study. Suicide Risk Level Suicide Risk Level: Moderate (q15 min suicide checks) Suicide Risk Level Comments: Continues to have depressed mood with hopelessness and grief with periods of passive SI but feels safe in the hospital and denies plan or intent. Risk Factors Assessment Male: Yes : Yes Do You Have Access To A Gun?: No Mental Health Diagnoses: Yes Substance Use Disorders: No Previous Attempt: Yes Previous Psychiatric Hospitalization: Yes Protective Factors Assessment Responsible for Young Children: No Employed: No Stable Relationships: No Interval History Identifying Information ROBERTO CAMARILLO is a 41-year-old M, resident of [place], has a history of multiple hospitalizations for schizoaffective disorder, and was admitted on 01/04/22 06:23 on a 201 voluntary commitment for suicidal gesture. Chief Complaint "It's been good to have more time to talk, I need that". Review of Systems Sleep Information Total Hours of Sleep: 7.75 Sleep Comments: pt on q-15 minute checks Meal Information Percent Meal Consumed - Breakfast: 100 Percent Meal Consumed - Lunch: 100 Percent Meal Consumed - Dinner: 100 Subjective Subjective Patient was seen & assessed and interval progress reviewed with treatment team nursing and social work. Remains fixated on his cat. Has been more animated in groups with peers while playing a game. Remains very sad about not being able to have his cat at his housing location. States he is thinking about possible foster home situations for his cat. States his mood is "ok". Fell asleep faster last night. Denies SI but still feels depressed. He is finding support of groups very helpful especially as he feels that he has more time to discuss and process as he often feels "rushed" at psych rehab. Physical Exam Psychiatric Orientation: alert and oriented x 3 Apperance: + disheveled Eye Contact: + fair eye contact Motor Behavior: no abnormal motor movements Speech: normal rate/rhythm/volume of speech Affect: + depressed affect Mood: + depressed mood Thought Process: + concrete thought process Thought Content: reality based without delusions Suicidal Thoughts: denies suicidal thoughts, denies suicidal plan and denies suicidal intent Homicidal Thoughts: denies homicidal thoughts Hallucinations: no auditory hallucinations and no visual hallucinations Cognition: attention grossly intact and language grossly intact Estimated Intelligence: + below average estimated intelligence Insight: + limited insight Judgement: + limited judgement Vital Signs (Past 24 Hours) Last Vital Signs Temp 36.9 C 01/09/22 06:43 Pulse 101 H 01/09/22 06:45 Resp 18 01/09/22 06:43 BP 112/77 01/09/22 06:45 Pulse Ox 94 01/04/22 07:18 Results & Data ([facility]) Current Inpatient Medications Current Inpatient Medications: Current Inpatient Medications Acetaminophen (Acetaminophen 325 Mg Tab) 650 mg PO Q4H PRN PRN Reason: Headache or Minor Fever Stop: 02/03/22 07:10 Al Hydrox/Mg Hydrox/Simethicone (Aluminum/Magnesium Susp 30 Ml Udc) 30 ml PO Q4H PRN PRN Reason: GI Upset Stop: 02/03/22 07:10 Amlodipine Besylate (Amlodipine Besylate 5 Mg Tab) 10 mg PO QAM [facility] Stop: 02/03/22 11:59 Last Admin: 01/09/22 08:40 Dose: 10 mg Documented by: Bismuth Subsalicylate (Bismuth Subsalicylate Liqd 236 Ml) 15 ml PO PRN PRN PRN Reason: Loose Stool Stop: 02/03/22 07:10 Divalproex Sodium (Divalproex Extended Release 500 Mg Tab) 500 mg PO QAM [facility] Stop: 02/03/22 11:59 Last Admin: 01/09/22 08:40 Dose: 500 mg Documented by: Divalproex Sodium (Divalproex Extended Release 250 Mg Tabcr) 750 mg PO HS JULISSA Stop: 02/03/22 21:59 Last Admin: 01/08/22 21:35 Dose: 750 mg Documented by: Hydroxyzine HCl (Hydroxyzine Hcl 25 Mg Tab) 50 mg PO HSZ PRN PRN Reason: Insomnia Stop: 02/03/22 07:10 Hydroxyzine HCl (Hydroxyzine Hcl 25 Mg Tab) 25 mg PO Q4H PRN PRN Reason: Anxiety Stop: 02/03/22 07:10 Magnesium Hydroxide (Magnesium Hydroxide Susp 30 Ml Udc) 30 ml PO DAILY PRN PRN Reason: Constipation Stop: 02/03/22 07:10 Melatonin (Melatonin 3 Mg Tab) 9 mg PO HS PRN PRN Reason: Sleep Stop: 02/07/22 16:57 Nicotine Polacrilex (Nicotine Polacrilex 2 Mg Gum) 1 piece MT Q1H PRN PRN Reason: Smoking cessation Stop: 02/04/22 17:41 Last Admin: 01/08/22 21:04 Dose: 1 piece Documented by: Pantoprazole Sodium (Pantoprazole 40 Mg Tab) 40 mg PO BID [facility] Stop: 02/03/22 11:59 Last Admin: 01/09/22 08:39 Dose: 40 mg Documented by: Sodium Chloride (Sodium Chloride 0.65% Na Soln 45 Ml ([place])) 1 - 2 sprays NA PRN PRN PRN Reason: Nasal Dryness/Congestion Stop: 02/03/22 07:10 Venlafaxine HCl (Venlafaxine Hcl Xr 75 Mg Capxr) 225 mg PO HS JULISSA Stop: 02/03/22 21:59 Last Admin: 01/08/22 21:34 Dose: 225 mg Documented by: Mental Health & Subst Abuse Tx Psychiatrist Name of Psychiatrist: Stiven Gavin PA-C Psychiatrist's Date of Appointment with Psychiatrist: 01/12/22 Time of Appointment with Psychiatrist: 9:00am Psychiatric Appointment Comment: [address] [facility] Therapist Name of Therapist: None current Brewmaster Name of Brewmaster: MATHEW Spann Phone Number for Brewmaster: [phone] Post Discharge Appointments Primary Care Physician Name Of Family Doctor: David Estrada Primary Care Date of Appointment with PCP: 01/13/22 Time of Appointment with PCP: 9:25 a.m. Provider Appointment Comment: [address] [facility] Contact Information Discharge Discharge Address: [address] [place] [id number]
[2022-01-09] MEDS: NICOTINE POLACRILEX 2 MG GUM MT PRN (11:42)
[2022-01-09] MEDS: DIVALPROEX EXTENDED RELEASE 250 MG TABCR PO SCH (21:13)
[2022-01-09] MEDS: VENLAFAXINE HCL XR 75 MG CAPXR PO SCH (21:14)
[2022-01-10] MEDS: amLODIPine BESYLATE 5 MG TAB PO SCH (08:44)
[2022-01-10] MEDS: DIVALPROEX EXTENDED RELEASE 500 MG TAB PO SCH (08:45)
[2022-01-10] MEDS: PANTOprazole 40 MG TAB PO SCH ×2 (08:45→21:26)
--- NOTE | 2022-01-10 09:00 | Psychiatric Progress Note ---
Date of Service January 10, 2022 Impression / Recommendations Impression 41 yo man with schizoaffective disorder, reactive depression in context of not being able to have his cat at his [facility]dc. Diagnostically consistent with schizoaffective disorder with depressed mood as well some grief related to not being able to have his cat. The patient is deemed unstable and requires psychiatric hospitalization for diagnostic clarification, safety and stabilization, medication management and development of further coping skills. MNPR due to poor attention to hygiene 01/10/22: steady improvement in mood, more hopeful today and denies SI. Feels he's developing coping skills he can use when he experiences grief. Tolerating medications without any side effects. Feels his mood changes were situational due to his cat. (1) Schizoaffective disorder: (2) Morbid obesity: 01/10/22: Continue current medications and tx plan. Completed safety plan. 01/09/22: Continue current medications and tx plan. 01/08/22: Continue current medications and tx plan. 01/07/22: Depakote level 53, may have been a day 4 trough rather than day 5, regardless patient has not been exhibiting irritability or lability, mainly depression. Remains ambivalent about antidepressant trial. Reviewed that Dr. Kee can provide a second opinion to him tomorrow as assuming coverage for service at 1700. 01/06/22: Depakote level and fasting labs in the am. 01/05/22: continue current meds and treatment plan. 01/04/22: The patient was admitted to the [facility] ([facility]) on q15 min checks (behavioral with suicide precautions) for safety. The patient will participate in group, recreational, and milieu therapies and will be offered additional individual and family sessions as clinically appropriate. Risks/benefits/alternatives reviewed re: his current medications. Discussion included but was not limited to need for longer term monitoring with Depakote and Invega (received sustenna on 12/17/21), particularly for TD and metabolic. As he missed several doses of Depakote within the last 5 days will wait to get level and add metabolic screenings at that time. He should have PCP f/u for consideration for repeat sleep study. Suicide Risk Level Suicide Risk Level: Moderate (q15 min suicide checks) Suicide Risk Level Comments: Continues to have depressed mood and grief but denies SI. Risk Factors Assessment Male: Yes : Yes Do You Have Access To A Gun?: No Mental Health Diagnoses: Yes Substance Use Disorders: No Previous Attempt: Yes Previous Psychiatric Hospitalization: Yes Protective Factors Assessment Responsible for Young Children: No Employed: No Stable Relationships: No Interval History Identifying Information ROBERTO CAMARILLO is a 41-year-old M, resident of [place], has a history of multiple hospitalizations for schizoaffective disorder, and was admitted on 01/04/22 06:23 on a 201 voluntary commitment for suicidal gesture. Chief Complaint "I'm ok". Review of Systems Sleep Information Total Hours of Sleep: 6.5 Sleep Comments: pt on q-15 minute checks Meal Information Percent Meal Consumed - Breakfast: 90 Percent Meal Consumed - Lunch: 100 Percent Meal Consumed - Dinner: 100 Subjective Subjective Patient was seen & assessed and interval progress reviewed with treatment team nursing and social work. Ariel reports his mood is stable. he slept well again last night. Denies any medication side effects. Feels more hopeful about eventually being able to work on a plan for fostering his cat and having visits or ideally eventually finding housing where he can have his cat with him. Completed his safety plan today. Denies SI. Attending groups and has found socializing with peers helpful for his mood. Physical Exam Psychiatric Orientation: alert and oriented x 3 Apperance: appropriately dressed and appropriately groomed Eye Contact: good eye contact Motor Behavior: no abnormal motor movements Speech: normal rate/rhythm/volume of speech Affect: + constricted affect Mood: + depressed mood Thought Process: + concrete thought process Thought Content: reality based without delusions Suicidal Thoughts: denies suicidal thoughts Homicidal Thoughts: denies homicidal thoughts Hallucinations: no auditory hallucinations and no visual hallucinations Cognition: recent memory grossly intact, remote memory grossly intact, attention grossly intact and language grossly intact Estimated Intelligence: + below average estimated intelligence Insight: + fair insight Judgement: + fair judgement Vital Signs (Past 24 Hours) Last Vital Signs Temp 36.4 C L 01/10/22 06:40 Pulse 118 H 01/10/22 06:40 Resp 18 01/10/22 06:40 BP 135/82 01/10/22 06:40 Pulse Ox 94 01/04/22 07:18 Results & Data ([facility]) Current Inpatient Medications Current Inpatient Medications: Current Inpatient Medications Acetaminophen (Acetaminophen 325 Mg Tab) 650 mg PO Q4H PRN PRN Reason: Headache or Minor Fever Stop: 02/03/22 07:10 Al Hydrox/Mg Hydrox/Simethicone (Aluminum/Magnesium Susp 30 Ml Udc) 30 ml PO Q4H PRN PRN Reason: GI Upset Stop: 02/03/22 07:10 Amlodipine Besylate (Amlodipine Besylate 5 Mg Tab) 10 mg PO QAM [facility] Stop: 02/03/22 11:59 Last Admin: 01/10/22 08:44 Dose: 10 mg Documented by: Bismuth Subsalicylate (Bismuth Subsalicylate Liqd 236 Ml) 15 ml PO PRN PRN PRN Reason: Loose Stool Stop: 02/03/22 07:10 Divalproex Sodium (Divalproex Extended Release 500 Mg Tab) 500 mg PO QAM [facility] Stop: 02/03/22 11:59 Last Admin: 01/10/22 08:45 Dose: 500 mg Documented by: Divalproex Sodium (Divalproex Extended Release 250 Mg Tabcr) 750 mg PO HS JULISSA Stop: 02/03/22 21:59 Last Admin: 01/09/22 21:13 Dose: 750 mg Documented by: Hydroxyzine HCl (Hydroxyzine Hcl 25 Mg Tab) 50 mg PO HSZ PRN PRN Reason: Insomnia Stop: 02/03/22 07:10 Hydroxyzine HCl (Hydroxyzine Hcl 25 Mg Tab) 25 mg PO Q4H PRN PRN Reason: Anxiety Stop: 02/03/22 07:10 Magnesium Hydroxide (Magnesium Hydroxide Susp 30 Ml Udc) 30 ml PO DAILY PRN PRN Reason: Constipation Stop: 02/03/22 07:10 Melatonin (Melatonin 3 Mg Tab) 9 mg PO HS PRN PRN Reason: Sleep Stop: 02/07/22 16:57 Nicotine Polacrilex (Nicotine Polacrilex 2 Mg Gum) 1 piece MT Q1H PRN PRN Reason: Smoking cessation Stop: 02/04/22 17:41 Last Admin: 01/09/22 11:42 Dose: 1 piece Documented by: Pantoprazole Sodium (Pantoprazole 40 Mg Tab) 40 mg PO BID [facility] Stop: 02/03/22 11:59 Last Admin: 01/10/22 08:45 Dose: 40 mg Documented by: Sodium Chloride (Sodium Chloride 0.65% Na Soln 45 Ml ([place])) 1 - 2 sprays NA PRN PRN PRN Reason: Nasal Dryness/Congestion Stop: 02/03/22 07:10 Venlafaxine HCl (Venlafaxine Hcl Xr 75 Mg Capxr) 225 mg PO HS JULISSA Stop: 02/03/22 21:59 Last Admin: 01/09/22 21:14 Dose: 225 mg Documented by: Mental Health & Subst Abuse Tx Psychiatrist Name of Psychiatrist: Stiven Gavin PA-C Psychiatrist's Date of Appointment with Psychiatrist: 01/12/22 Time of Appointment with Psychiatrist: 9:00am Psychiatric Appointment Comment: [address] [facility] Therapist Name of Therapist: None current Profiler Hand Name of Profiler Hand: MATHEW Spann Phone Number for Profiler Hand: [phone] Post Discharge Appointments Primary Care Physician Name Of Family Doctor: David Estrada Primary Care Date of Appointment with PCP: 01/13/22 Time of Appointment with PCP: 9:25 a.m. Provider Appointment Comment: [address] [facility] Contact Information Discharge Discharge Address: [address] [place] [id number]
[2022-01-10] MEDS: VENLAFAXINE HCL XR 75 MG CAPXR PO SCH (21:26)
[2022-01-10] MEDS: DIVALPROEX EXTENDED RELEASE 250 MG TABCR PO SCH (21:26)
[2022-01-11] MEDS: DIVALPROEX EXTENDED RELEASE 500 MG TAB PO SCH (08:46)
[2022-01-11] MEDS: PANTOprazole 40 MG TAB PO SCH (08:46)
[2022-01-11] MEDS: amLODIPine BESYLATE 5 MG TAB PO SCH (08:46)
--- NOTE | 2022-01-11 09:03 | Discharge Summary ---
Date of Service January 11, 2022 History of Present Illness Per admission H&P by Dr. Livingston: Ariel called the ambulance himself after he attempted to strangle himself with the tie out of his sweatpants and also putting a shirt around his neck. He was triggered by peers at [facility] talking about their pets and he missed his cat. His cat is with 2 roommates who "were a bad living situation" and he left for a fci in October just before he was admitted to [facility] for suicidal ideation. He has chronic low mood, passive SI, hopelessness, and guilt. He is having difficulty getting more permanent housing. He denies any hallcuinations "for years" and reports he is compliant with his medications in general but did miss his Depakote 12/31 and 01/01/22. He had difficulty describing past manic symptoms. He states that overall his energy is low as he often feels muscle strain due to his body habitus. He also snores but "I was told I didn't have sleep apnea" but admittedly has gained 100 lbs since. He has frequent awakenings at night which he felt were related to needing to urinate. Physical Exam Vital Signs (Past 24 Hours) Last Vital Signs Temp 36.5 C 01/11/22 06:50 Pulse 75 01/11/22 06:50 Resp 18 01/11/22 06:50 BP 133/83 01/11/22 06:50 Pulse Ox 94 01/04/22 07:18 See admission H&P and DOD summary. Principal Diagnosis Schizoaffective disorder Psychiatric Data See daily stay summary. In short, patient was engaged with the social/therapeutic milieu of the unit, safety was maintained and the patient was cooperative with care. He did not wish to make any medication changes as he felt his mood changes and SI were triggered by situational stressor of missing his cat and preferred to work on processing this grief and developing more coping skills. Valproic acid level on admission was 53 and WNL. Baseline labs of fasting glucose and fasting lipid profile were preformed and WNL. Recommend repeat fasting glucose, HbA1c if needed and fasting lipid profile at least annually. If symptoms arise recommend checking BP, EKG, prolactin level as clinically indicated or relevant. A support session was held with his telehealth case manager and safety plan was completed prior to discharge. In the days leading up to discharge he consistently denied any SI. He particip ated in safety planning and in discussions about ways to seek support and recognizing warning signs and utilizing coping skills. Reviewed importance of seeking emergency care should SI intensify, worsen or should they feel unsafe in the future which they agree to do. On the day of discharge he stated his mood was "good, I'm ready to go" and remained future-oriented including smoking ciagrettes, spending time with other peers at his supported living home, listening to music, shopping at [employer], paying rent and engaging in aftercare appointments for psychiatry and psych rehab. Day of Discharge Assessment Today the patient voices readiness for discharge. They note improvement in mood. They deny thoughts of harm to self or others. Thoughts are organized and they are clinically improved from admission. There is no evidence of psychosis. They improved in the hospital with support. They agree to take medications as prescribed and keep follow-up appointments. At the time of the discharge they are deemed to be stable and appropriate for outpatient level of care. They are not deemed to be at imminent risk of harm to self or others. They are aware of emergency and crisis services. Knows to call 911 or go to nearest emergency care center if in a crisis which cannot be handled as an outpatient. Transition of Care Transition Of Care Record: was reviewed with the patient Advance Directives Advance Directives Information Provided: Yes Advance Directives: No Mental Health Advance Directive: No Advance Directives on File: No Living Will: No Power of Bonderizer: No Advance Directives Reason:: Declines as Mental Health Visit. Suicide Risk Level Suicide Risk Level: Low (q15 min observation checks) Suicide Risk Level Comments: Acute risk is low given improvement in mood and denial of SI, lack of access to lethal means, improvement in sleep and hopefulness. Chronic risk is moderate given non-modifiable risk factors including psychiatric co-morbid diagnoses periods of impulsivity prior attempt prior psychiatric hospitalizations but also with protective factors. Counseled on ways to reduce acute and chronic risk including engaging with outpatient providers, using safety plan if needed, utilizing supports, taking medication, and using coping skills. Modifiable risk factors of SI and depression were addressed during hospitalization through development of new coping skills, support meeting, safety planning,. Risk Factors Assessment Male: Yes : Yes Do You Have Access To A Gun?: No Mental Health Diagnoses: Yes Substance Use Disorders: No Previous Attempt: Yes Previous Psychiatric Hospitalization: Yes Hopelessness: No Protective Factors Assessment Responsible for Young Children: No Employed: No Stable Relationships: Yes Good Rapport with Provider: Yes Tobacco Cessation at Discharge Tobacco Cessation Medication Prescribed at Discharge: Offered & Pt Refused Discharge Data Lab Results 01/04/22 01/04/22 01/04/22 01:40 01:40 01:56 WBC 7.80 RBC 4.30 L Hgb 14.8 Hct 43.3 MCV 100.7 H MCH 34.4 H MCHC 34.2 RDW Std Deviation 46.8 H RDW Coeff of Zay 12.9 Plt Count 287 MPV 9.3 Immature Gran % (Auto) 0.1 Neut % (Auto) 60.2 Lymph % (Auto) 24.6 Mccone % (Auto) 12.7 Eos % (Auto) 2.1 Baso % (Auto) 0.3 Neut # (Auto) 4.70 Lymph # (Auto) 1.92 Mccone # (Auto) 0.99 H Eos # (Auto) 0.16 Baso # (Auto) 0.02 Immature Gran # (Auto) 0.01 Sodium Potassium Chloride Carbon Dioxide Anion Gap BUN Creatinine Est Cr Clr Drug Dosing Est GFR ( Amer) Est GFR (Non-Af Amer) BUN/Creatinine Ratio Glucose Fasting Glucose Calcium Total Bilirubin AST ALT Alkaline Phosphatase Total Protein Albumin Globulin Albumin/Globulin Ratio Triglycerides Cholesterol LDL Cholesterol, Calc VLDL Cholesterol, Calc HDL Cholesterol Cholesterol/HDL Ratio TSH Urine Color Yellow Urine Appearance Clear Urine pH 5.5 Ur Specific Java 1.011 Urine Protein Negative Urine Glucose (UA) Negative Urine Ketones Negative Urine Blood Negative Urine Nitrite Negative Urine Bilirubin Negative Urine Urobilinogen Negative Ur Leukocyte Esterase Negative Salicylates Urine Opiates Screen Neg Ur Methadone, Qual Neg Acetaminophen Urine Barbiturates Neg Valproic Acid Ur Phencyclidine (PCP) Neg U Amphetamin/Meth Scrn Neg MDMA (Ecstasy) Screen Neg U Benzodiazepines Scrn Neg Ur Cocaine Metabolite Neg U Marijuana (THC) Screen Neg Ethyl Alcohol mg/dL SARS-CoV-2, RNA, NAAT 01/04/22 01/04/22 01/04/22 01:56 01:56 01:56 WBC RBC Hgb Hct MCV MCH MCHC RDW Std Deviation RDW Coeff of Zay Plt Count MPV Immature Gran % (Auto) Neut % (Auto) Lymph % (Auto) Mccone % (Auto) Eos % (Auto) Baso % (Auto) Neut # (Auto) Lymph # (Auto) Mccone # (Auto) Eos # (Auto) Baso # (Auto) Immature Gran # (Auto) Sodium 134 L Potassium 3.7 Chloride 102 Carbon Dioxide 24 Anion Gap 8 BUN 13 Creatinine 1.07 Est Cr Clr Drug Dosing 149.5 Est GFR ( Amer) 98.0 Est GFR (Non-Af Amer) 84.6 BUN/Creatinine Ratio 12.1 Glucose 93 Fasting Glucose Calcium 8.8 Total Bilirubin 0.7 AST 15 ALT 17 Alkaline Phosphatase 70 Total Protein 6.8 Albumin 3.9 Globulin 2.9 Albumin/Globulin Ratio 1.3 Triglycerides Cholesterol LDL Cholesterol, Calc VLDL Cholesterol, Calc HDL Cholesterol Cholesterol/HDL Ratio TSH 2.428 Urine Color Urine Appearance Urine pH Ur Specific Java Urine Protein Urine Glucose (UA) Urine Ketones Urine Blood Urine Nitrite Urine Bilirubin Urine Urobilinogen Ur Leukocyte Esterase Salicylates < 3.0 L Urine Opiates Screen Ur Methadone, Qual Acetaminophen < 3 L Urine Barbiturates Valproic Acid Ur Phencyclidine (PCP) U Amphetamin/Meth Scrn MDMA (Ecstasy) Screen U Benzodiazepines Scrn Ur Cocaine Metabolite U Marijuana (THC) Screen Ethyl Alcohol mg/dL SARS-CoV-2, RNA, NAAT 01/04/22 01/04/22 01/07/22 01:56 Unknown 07:37 WBC RBC Hgb Hct MCV MCH MCHC RDW Std Deviation RDW Coeff of Zay Plt Count MPV Immature Gran % (Auto) Neut % (Auto) Lymph % (Auto) Mccone % (Auto) Eos % (Auto) Baso % (Auto) Neut # (Auto) Lymph # (Auto) Mccone # (Auto) Eos # (Auto) Baso # (Auto) Immature Gran # (Auto) Sodium Potassium Chloride Carbon Dioxide Anion Gap BUN Creatinine Est Cr Clr Drug Dosing Est GFR ( Amer) Est GFR (Non-Af Amer) BUN/Creatinine Ratio Glucose Fasting Glucose 90 Calcium Total Bilirubin AST ALT Alkaline Phosphatase Total Protein Albumin Globulin Albumin/Globulin Ratio Triglycerides 128 Cholesterol 162 LDL Cholesterol, Calc 100 VLDL Cholesterol, Calc 26 HDL Cholesterol 36 Cholesterol/HDL Ratio 4.5 TSH Urine Color Urine Appearance Urine pH Ur Specific Java Urine Protein Urine Glucose (UA) Urine Ketones Urine Blood Urine Nitrite Urine Bilirubin Urine Urobilinogen Ur Leukocyte Esterase Salicylates Urine Opiates Screen Ur Methadone, Qual Acetaminophen Urine Barbiturates Valproic Acid Ur Phencyclidine (PCP) U Amphetamin/Meth Scrn MDMA (Ecstasy) Screen U Benzodiazepines Scrn Ur Cocaine Metabolite U Marijuana (THC) Screen Ethyl Alcohol mg/dL < 10.0 SARS-CoV-2, RNA, NAAT NEGATIVE 01/07/22 07:37 WBC RBC Hgb Hct MCV MCH MCHC RDW Std Deviation RDW Coeff of Zay Plt Count MPV Immature Gran % (Auto) Neut % (Auto) Lymph % (Auto) Mccone % (Auto) Eos % (Auto) Baso % (Auto) Neut # (Auto) Lymph # (Auto) Mccone # (Auto) Eos # (Auto) Baso # (Auto) Immature Gran # (Auto) Sodium Potassium Chloride Carbon Dioxide Anion Gap BUN Creatinine Est Cr Clr Drug Dosing Est GFR ( Amer) Est GFR (Non-Af Amer) BUN/Creatinine Ratio Glucose Fasting Glucose Calcium Total Bilirubin AST ALT Alkaline Phosphatase Total Protein Albumin Globulin Albumin/Globulin Ratio Triglycerides Cholesterol LDL Cholesterol, Calc VLDL Cholesterol, Calc HDL Cholesterol Cholesterol/HDL Ratio TSH Urine Color Urine Appearance Urine pH Ur Specific Java Urine Protein Urine Glucose (UA) Urine Ketones Urine Blood Urine Nitrite Urine Bilirubin Urine Urobilinogen Ur Leukocyte Esterase Salicylates Urine Opiates Screen Ur Methadone, Qual Acetaminophen Urine Barbiturates Valproic Acid 53 Ur Phencyclidine (PCP) U Amphetamin/Meth Scrn MDMA (Ecstasy) Screen U Benzodiazepines Scrn Ur Cocaine Metabolite U Marijuana (THC) Screen Ethyl Alcohol mg/dL SARS-CoV-2, RNA, NAAT Hospital Course (1) Schizoaffective disorder: (2) Morbid obesity: 01/10/22: Continue current medications and tx plan. Completed safety plan. 01/09/22: Continue current medications and tx plan. 01/08/22: Continue current medications and tx plan. 01/07/22: Depakote level 53, may have been a day 4 trough rather than day 5, regardless patient has not been exhibiting irritability or lability, mainly depression. Remains ambivalent about antidepressant trial. Reviewed that Dr. Kee can provide a second opinion to him tomorrow as assuming coverage for service at 1700. 01/06/22: Depakote level and fasting labs in the am. 01/05/22: continue current meds and treatment plan. 01/04/22: The patient was admitted to the [facility]) on q15 min checks (behavioral with suicide precautions) for safety. The patient will participate in group, recreational, and milieu therapies and will be offered additional individual and family sessions as clinically appropriate. Risks/benefits/alternatives reviewed re: his current medications. Discussion included but was not limited to need for longer term monitoring with Depakote and Invega (received sustenna on 12/17/21), particularly for TD and metabolic. As he missed several doses of Depakote within the last 5 days will wait to get level and add metabolic screenings at that time. He should have PCP f/u for consideration for repeat sleep study. Mental Health & Subst Abuse Tx Psychiatrist Name of Psychiatrist: Stiven Cuevas - El Gavin PA-C Psychiatrist's Date of Appointment with Psychiatrist: 01/12/22 Time of Appointment with Psychiatrist: 9:00 am Psychiatric Appointment Comment: puttying and calking supervisor by [facility] Transportation - please be ready by 7:30 a.m. Therapist Name of Therapist: None current Pellet Mill Operator Name of Pellet Mill Operator: MATHEW Spann Phone Number for Pellet Mill Operator: [phone] Date of Appointment with Pellet Mill Operator: 01/13/22 Time of Appointment with Pellet Mill Operator: Will meet you at your PCP appt on Case Management Appointment Comment: Will meet you at your PCP appt on Post Discharge Appointments Primary Care Physician Name Of Family Doctor: David Estrada Primary Care Date of Appointment with PCP: 01/13/22 Time of Appointment with PCP: 9:25 a.m. Provider Appointment Comment: puttying and calking supervisor by [facility] Transportation - please be ready by 8 a.m. Smoking Cessation Counseling Tobacco Cessation Medication Prescribed at Discharge: Offered & Pt Refused Contact Information Discharge Discharge Address: [address] [place] [id number] Discharge Plan Discharge Items Patient Disposition: Home - Self-Care Reason For Visit: MHE Discharge Diagnosis: Schizoaffective disorder Activity: Resume your previous activity Non-emergency contact: Primary Care Provider, Psychiatrist and [facility] Call non-emergency contact if: you have any medication questions and your symptoms worsen Follow-up/Referrals: Gianni Estrada MD [Primary Care Provider] - Diet: Regular Addtl Attending Provider Instructions: SPECIAL CARE INSTRUCTIONS: 1. Follow through with your scheduled aftercare appointments. If unable to keep an appointment, please call to reschedule. 2. Take your medication only as prescribed. Medication should not be changed or stopped without the approval of your doctor. In the event of worsening symptoms or concerns about side effects, contact your doctor immediately. 3. Utilize new healthy coping skills, anger management skills, and stress management skills learned during your hospitalization. Journal feelings and process them with a support person. Identify stressors or situations that may result in relapse, deterioration or inappropriate behaviors and develop a plan to deal with those issues. 4. If your coping skills are ineffective and you are in crisis, contact your outpatient providers for direction. If unable to reach your providers, please call the [facility] CRISIS LINE AT , go to the [facility] walk-in center at [address], [place], or go to the closest Emergency Room. 5. Avoid alcohol and un-prescribed drugs. 6. You have been provided with the Mental Health Advance Directives Pamphlet for your review. 7. Your condition is stable for discharge to outpatient level of care, but recovery is an ongoing process. Ifthoughts to harm yourself or others return, follow the safety plan developed during your stay. Planning for a safe return home includes securing weapons. Our treatment team recommends weaponsbe removed from the home until your outpatient provider reassesses your progress. In rare cases where the items themselvescannot be removed, guns and ammunitionshould be secured separatelyand keys stored by a reliable personoutside of the home. If you were admitted on an involuntary commitment, the police or other legal authorities may be involved in this process. AFTERCARE APPOINTMENTS: * Please call your insurance company prior to your scheduled appointment to confirm your aftercare providers are covered. Take your insurance information to your appointments. WHO TO CALL AND WHEN: Medical Emergencies: For questions or emergencies related to your hospital stay, please contact the Inpatient Behavioral Health Unit at [phone]. A blade filer is on-call 03/04 for the Behavioral Health Unit for emergencies At any time you feel your situation is an emergency, you may also call 911 immediately. Pending Studies at Discharge: No Stand-Alone Forms: My [facility], Smoking Cessation Medications and DC Order Prescriptions: Continued venlafaxine 75 mg capsule,extended release 24hr 225 mg PO HS RF: 0 divalproex 500 mg tablet extended release 24 hr 500 mg PO QAM RF: 0 amlodipine 10 mg tablet 10 mg PO QAM RF: 0 omeprazole 20 mg capsule,delayed release(DR/EC) 20 mg PO AMHS RF: 0 Invega Sustenna 156 mg/mL syringe 156 mg IM MONTHLY RF: 0 divalproex 250 mg tablet extended release 24 hr 750 mg PO HS RF: 0 Discharge Orders: Discharge Order (Routine); Ordered 01/11/22 Ordered By: Jesica Tapia/Other Patient Handouts: Journaling for Mental Health Admission Data Admit Date/Time: 01/04/22 06:23 Attending Provider: Madelyn Livingston Admit Provider: Madelyn Livingston Primary Care Provider: Gianni Estrada Other Interventions: Discharge Summary Assessment (RN) Last Done: 01/11/22 10:21 PSY Interdisciplinary Discharge Planning Last Done: 01/11/22 10:24 Coding Level of Care Code 45394 D/C day mgmt > 30 min Diagnoses Schizoaffective disorder F25.9 Morbid obesity E66.01 Time Spent (min) 30
== END 2022-01-11 10:47 | disposition home or self-care (01) | DRG 885 ==
LOC: ED 01:24 → 3S 06:23
DX: F25.9 Schizoaffective disorder, unspecified

== ENCOUNTER 2022-04-03 11:49 | Inpatient (IN) ==
[2022-04-03] MEDS ORDERED: MoRPHine SULFATE 10 MG/ML CARP/VIAL IV STA (12:05)
--- NOTE | 2022-04-03 12:10 | Emergency Department Note ---
History of Present Illness General Chief complaint: Leg Injury/Pain Stated complaint: R LOWER LEG PAIN Time Seen by Provider: 04/03/22 11:52 Source: patient Mode of arrival: EMS Limitations: no limitations History of Present Illness This patient is a 41-year-old male who presents to the emergency department for evaluation of right leg pain. Patient states that he was diagnosed with a DVT in his right lower extremity by his primary care provider at [facility] last week. He states he was sent home "without any effective pain medicine." He reports pain in the right leg especially with walking or standing. Rates his discomfort a 10/10. He has been taking Tylenol but states "it does not touch the pain." He does report some shortness of breath, feels that may be related to pain. Denies chest pain. He is currently taking an anticoagulant but is not sure which one. Home Medications Medication Instructions Recorded Confirmed Type amlodipine 10 mg tablet 10 mg PO QAM 01/04/22 04/03/22 History divalproex 250 mg tablet,extended 750 mg PO HS 01/04/22 04/03/22 History release 24 hr divalproex 500 mg tablet,extended 500 mg PO QAM 01/04/22 04/03/22 History release 24 hr omeprazole 20 mg capsule,delayed 20 mg PO AMHS 01/04/22 04/03/22 History release paliperidone palmitate 156 mg/mL 156 mg IM MONTHLY 01/04/22 04/03/22 History intramuscular syringe (Invega Sustenna) venlafaxine 75 mg capsule,extended 225 mg PO HS 01/04/22 04/03/22 History release 24 hr apixaban 5 mg tablet (Eliquis) See Rx Instructions .Route .COMPLEX 04/03/22 04/03/22 History sulfamethoxazole 800 1 tab PO BID 04/03/22 04/03/22 History mg-trimethoprim 160 mg tablet Allergies Allergy/AdvReac Type Severity Reaction Status Date / Time No Known Allergies Allergy Unknown Verified 04/03/22 15:36 Past Med/Surg History Medical History (Updated 04/03/22 @ 20:18 by Radha Rabago PA-C) GERD (gastroesophageal reflux disease) Hypertension Schizoaffective disorder Suicidal ideation Tobacco abuse Surgical History (Updated 04/03/22 @ 17:12 by Ellen Quiñones PA-C) History of cystoscopy Hx laparoscopic cholecystectomy Family History (Updated 04/03/22 @ 17:12 by Ellen Quiñones PA-C) Denies family history of Deep vein thrombosis Pulmonary embolism Social History (Updated 04/03/22 @ 17:13 by Ellen Quiñones PA-C) Smoking Status: Current every day smoker Tobacco Type: Cigarettes packs per day: 2; Hx Alcohol Use: No Hx Substance Use: No Preferred Language: Ethiopian 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 Beliefs That Will Affect Care: None marital status: Single Current Living Situation: Boarding Home Current Living Situation Comment: [facility] Feels Safe at Home: Yes Safety Concerns: Feels Safe At This Time Assistive Devices: Glasses Review of Systems A total of 10 systems reviewed and were otherwise negative Physical Exam Vital Signs Vital Signs - 24 hr 04/03/22 12:33 04/03/22 12:33 04/03/22 12:33 Temperature 36.6 C Temperature Source Oral Pulse Rate 84 74 Pulse Rate [Apical] 74 Pulse Rhythm Regular Regular Pulse Rhythm [Apical] Regular Pulse Strength Normal Pulse Strength [Apical] Normal Respiratory Rate 28 H 26 H 26 H Respiratory Effort / Characteristics Non-Labored Non-Labored Respiratory Depth Normal Normal Respiratory Pattern Regular Regular Blood Pressure 133/91 Blood Pressure [Left Arm] 133/91 Blood Pressure Mean 105 Blood Pressure Mean [Left Arm] 105 Blood Pressure Position Lying Blood Pressure Position [Left Arm] Lying Pulse Oximetry 96 96 96 Oxygen Delivery Method Room Air Room Air Room Air Sepsis New/Unexplained Change in Mental Status No Sepsis Action Taken by Nursing No Action Required VITALS: Vitals are noted on the nurse's note and reviewed by myself. GENERAL: This is a 41-year-old obese male, sitting up in bed in no apparent distress. SKIN: The skin was without rashes, erythema, edema, or bruising. EYES: Pupils equal round and reactive to light and accommodation. MOUTH: Mucous membranes moist. NECK: Supple without nuchal rigidity. HEART: Regular rate and rhythm without murmurs gallops or rubs. LUNGS: Clear to auscultation bilaterally without wheezes, rales or rhonchi. ABDOMEN: Positive bowel sounds x 4. Soft, nontender to palpation. EXTREMITIES: Right lower extremity edema when compared to the left. 2+ pitting edema right lower extremity. Mild warmth and tenderness to palpation of the posterior right calf. Dorsalis pedis pulse 2+. Right foot is warm and well- perfused. NEURO: Patient was alert and oriented to person place and time. Distal sensation intact. Course Administered Medications Heparin Sodium/Dextrose (Heparin Sodium/Dextrose) 25,000 units in 500 mls @ 42 mls/hr IV .[id number] [facility]; Protocol Stop: 05/03/22 15:14 Last Admin: 04/03/22 15:54 Dose: 2,100 units/hr, 42 mls/hr Documented By: RAMA Co-signed By: TOYIN Discontinued Medications Heparin Sodium (Porcine) (Heparin Sod (Porcine) 1000 Unit/Ml) 1 units IV NOW ONE Stop: 04/03/22 15:08 Last Admin: 04/03/22 15:57 Dose: 5,000 units Documented By: RAMA Co-signed By: TOYIN Ioversol (Optiray 320 125ml) 119 ml IV ONCE ONE Stop: 04/03/22 14:25 Last Admin: 04/03/22 14:26 Dose: 119 ml Documented By: BEVERLY Morphine Sulfate (Morphine Sulfate 10 Mg/Ml Carp/Vial) 6 mg IV NOW STA Stop: 04/03/22 12:06 Last Admin: 04/03/22 12:32 Dose: 6 mg Documented By: RAMA Morphine Sulfate (Morphine Sulfate 4 Mg/Ml 1 Ml Carp\\Vial) 4 mg IV NOW STA Stop: 04/03/22 16:23 Last Admin: 04/03/22 16:40 Dose: 4 mg Documented By: RAMA Critical Care Time Critical Care Time: Yes Total Critical Care Time: 35 I have personally spent greater than 35 minutes of critical care time in the direct management of this patient. This includes bedside care, interpretation of diagnostic studies, and testing, discussion with consultants, patient, and family members, and other required patient management activities. This 35 minutes is in excess of all separately billable procedures. Medical Decision Making Differential Diagnosis DVT, musculoskeletal, infection, joint effusion, trauma, lymphedema, idiopathic, CHF, as well as other pathologies. Home Medications Current Medication List: was personally reviewed by me Laboratory Data Attestation: I reviewed the patient's lab results. Result diagrams: 04/03/22 12:05 04/03/22 12:05 Lab Results 07/24/22 07/24/22 07/24/22 Range/Units 12:05 12:05 12:05 WBC 7.72 (4.8-10.8) K/ul RBC 4.08 L (4.63-6.08) M/uL Hgb 13.4 L (14.0-18.0) g/dl Hct 39.9 L (40.1-51.0) % MCV 97.8 (80.0-100.0) fL MCH 32.8 (25.0-34.0) pg MCHC 33.6 (32.0-36.0) g/dL RDW Std Deviation 45.2 (36.4-46.3) fL RDW Coeff of Zay 12.6 (11.5-14.5) % Plt Count 465 H (130-400) K/uL MPV 9.0 L (9.4-12.4) fL Immature Gran % (Auto) 0.3 % Neut % (Auto) 66.8 % Lymph % (Auto) 18.0 % [place] % (Auto) 13.1 % Eos % (Auto) 1.3 % Baso % (Auto) 0.5 % Neut # (Auto) 5.16 (1.4-6.5) K/uL Lymph # (Auto) 1.39 (1.2-3.4) K/uL [place] # (Auto) 1.01 H (0.24-0.82) K/uL Eos # (Auto) 0.10 (0-0.50) K/uL Baso # (Auto) 0.04 (0-0.2) K/uL Immature Gran # (Auto) 0.02 (0.00-0.02) K/uL Sodium 141 (136-145) mmol/L Potassium 4.0 (3.5-5.1) mmol/L Chloride 108 H (98-107) mmol/L Carbon Dioxide 26 (21-32) mmol/L Anion Gap 7 (3-11) BUN 14 (6-23) mg/dl Creatinine 1.04 (0.6-1.4) mg/dl Est Cr Clr Drug Dosing Not Reportable Est GFR ( Amer) 101.4 ml/min Est GFR (Non-Af Amer) 87.5 ml/min BUN/Creatinine Ratio 13.5 (10-20) Glucose 98 (70-99(Fasting)) mg/dl Calcium 8.6 (8.5-10.1) mg/dl Total Bilirubin 0.3 (0.2-1.0) mg/dl AST 15 (13-39) U/L ALT 17 (7-52) U/L Alkaline Phosphatase 84 (34-104) U/L Troponin I High Sens 3.8 (0-20) pg/ml Total Protein 6.6 (6.0-8.3) gm/dl Albumin 3.5 (3.4-5.0) gm/dl Globulin 3.1 (2.5-4.0) gm/dl Albumin/Globulin Ratio 1.1 (0.9-2) Imaging Data Attestation: I personally reviewed and interpreted this imaging study as follows: Radiologist's Impression: Venous Doppler Study 04/03/22 12:05 RIGHT LOWER EXTREMITY VENOUS DOPPLER HISTORY: right leg dvt worsening right leg pain COMPARISON STUDY: None. FINDINGS: The right common femoral vein is patent. There is occlusive thrombus identified within the distal right superficial femoral vein, popliteal vein, posterior tibial veins, peroneal veins, and anterior tibial veins. IMPRESSION: Extensive right lower extremity DVT as described above. ACT 112: Negative or not required by law. Electronically signed by: Zana Conner M.D. 04/03/2022 1:57 PM Chest CTA 04/03/22 13:42 CT ANGIOGRAPHY OF THE CHEST, PULMONARY EMBOLUS PROTOCOL CLINICAL HISTORY: dvt right leg, shortness of breath COMPARISON STUDY: No previous studies for comparison. TECHNIQUE: Following IV administration of 119 mL of Optiray, helical axial images of the chest were obtained utilizing the pulmonary embolus protocol. Maximal intensity projections and sagittal and coronal reformats were viewed on an independent 3D workstation. IV contrast was administered without complication. Automated exposure control was utilized for the study. A dose lowering technique was utilized adhering to the principles of ALARA. CT DOSE: 1128.97 mGy.cm FINDINGS: Multiple bilateral pulmonary emboli are noted, more extensive on the left. These include emboli within the distal left and right pulmonary arteries. No CT evidence for right heart strain. Several emboli appear adherent to the wall. In addition, there are are linear filling defects suggestive of chronic emboli within the right lower lobe pulmonary artery extending into segmental branches of the right lower lobe. Trace right pleural effusion is noted. Subpleural right lower lobe opacity could reflect atelectasis. Underlying small pulmonary infarct within the right lower lobe cannot be excluded. Mild left lower lobe airspace opacity favors atelectasis. The esophagus is mildly dilated. Prominent bilateral axillary lymph nodes are noted, including a mildly enlarged left axillary lymph node that measures 2.3 x 1.2 cm. Probable hepatic steatosis is noted. IMPRESSION: 1. Numerous bilateral pulmonary emboli, more extensive on the left. These emboli are age indeterminate and could reflect acute and chronic pulmonary emboli. No CT evidence for right heart strain. 2. Trace right pleural effusion. Right lower lobe airspace opacity which favors atelectasis although a small pulmonary infarct could appear similar. 3. Prominent bilateral axillary lymph nodes, including a mildly enlarged left axillary lymph node. These nodes are nonspecific. ACT 112: Negative or not required by law. Electronically signed by: Ho Ramsey M.D. 04/03/2022 2:49 PM ECG Data Attestation: I personally reviewed and interpreted this ECG as follows: Indication: + SOB/dyspnea Rate (beats per minute): 71 Rhythm: + sinus with SA ECG Intervals/blocks: + Normal QRS ECG ST segments: + Normal ST segments Comparison ECG Date: no prior available MDM Narrative Continuous teletypesetter monitor: Order was placed for continuous teletypesetter monitor. Patient was placed on the teletypesetter monitor. Patient was noted to be in normal sinus rhythm at an initial rate of 80 bpm. The patient is a 41-year-old male who presents today complaining of worsening right leg pain after recent DVT diagnosis. [facility] records were reviewed. Patient was diagnosed with a right-sided DVT beginning at the level of the proximal popliteal vein and extending into the calf. Ultrasound was repeated here and shows more extensive DVT at this time. CT of the chest was performed and did show bilateral PE as well as potential pulmonary infarct. Patient was given IV heparin. The case was discussed with the [facility] hospitalist service, who agreed to evaluate the patient for further care. Impression & Plan Bilateral pulmonary embolism, Right leg DVT Discharge Plan Visit Data Chief Complaint: Leg Injury/Pain Stated Complaint: R LOWER LEG PAIN ED Provider: Jose Luis Velasquez ED Midlevel Provider: Radha Rabago Discharge Problem: Bilateral pulmonary embolism, Right leg DVT Discharge Instructions Interventions: ED Discharge Assessment Last Done: 04/03/22 18:20
[2022-04-03 12:14] LABS: Basophils # (auto) 0.04 K/uL (0-0.2); Basophils % (auto) 0.5 %; Eosinophils % (auto) 1.3 %; Hematocrit (blood only) 39.9 % (40.1-51.0); Hemoglobin 13.4 g/dl (14.0-18.0); Immature Granulocytes # (auto) 0.02 K/uL (0.00-0.02); Immature Granulocytes % (auto) 0.3 %; Lymphocytes # (auto) 1.39 K/uL (1.2-3.4); Mean Corpuscular Hemoglobin 32.8 pg (25.0-34.0); Mean Corpuscular Hgb Conc 33.6 g/dL (32.0-36.0); Mean Corpuscular Volume 97.8 fL (80.0-100.0); Monocytes # (auto) 1.01 K/uL (0.24-0.82); Monocytes % (auto) 13.1 %; Neutrophils # (auto) 5.16 K/uL (1.4-6.5); Neutrophils % (auto) 66.8 %; Platelet Count 465 K/uL (130-400); RDW Coefficient of Variation 12.6 % (11.5-14.5); RDW Standard Deviation 45.2 fL (36.4-46.3); Red Blood Count 4.08 M/uL (4.63-6.08); White Blood Count 7.72 K/ul (4.8-10.8)
[2022-04-03 12:35] LABS: Alanine Aminotransferase 17 U/L (7-52); Albumin Globulin Ratio 1.1 (0.9-2); Albumin Level 3.5 gm/dl (3.4-5.0); Alkaline Phosphatase 84 U/L (34-104); Anion Gap 7 (3-11); Aspartate Aminotransferase 15 U/L (13-39); BUN Creatinine Ratio 13.5 (10-20); Bilirubin,Total 0.3 mg/dl (0.2-1.0); Blood Urea Nitrogen 14 mg/dl (6-23); Calcium 8.6 mg/dl (8.5-10.1); Carbon Dioxide 26 mmol/L (21-32); Chloride 108 mmol/L (98-107); Est GFR (African American) 101.4 ml/min; Est GFR (Non-African American) 87.5 ml/min; Globulin 3.1 gm/dl (2.5-4.0); Glucose 98 mg/dl (70-99(Fasting)); Sodium 141 mmol/L (136-145); Total Protein 6.6 gm/dl (6.0-8.3)
--- NOTE | 2022-04-03 13:58 | Ultrasound Report ---
RIGHT LOWER EXTREMITY VENOUS DOPPLER HISTORY: right leg dvt worsening right leg pain COMPARISON STUDY: None. FINDINGS: The right common femoral vein is patent. There is occlusive thrombus identified within the distal right superficial femoral vein, popliteal vein, posterior tibial veins, peroneal veins, and an terior tibial veins. IMPRESSION: Extensive right lower extremity DVT as described above. ACT 112: Negative or not required by law. Electronically signed by: Zana Conner M.D. 04/03/2022 1:57 PM
[2022-04-03] MEDS ORDERED: OPTIRAY 320 125ml IV ONE (14:24)
--- NOTE | 2022-04-03 14:51 | CT Scan Report ---
CT ANGIOGRAPHY OF THE CHEST, PULMONARY EMBOLUS PROTOCOL CLINICAL HISTORY: dvt right leg, shortness of breath COMPARISON STUDY: No previous studies for comparison. TECHNIQUE: Following IV administration of 119 mL of Optiray, helical axial images of the chest were o btained utilizing the pulmonary embolus protocol. Maximal intensity projections and sagittal and cor onal reformats were viewed on an independent 3D workstation. IV contrast was administered without co mplication. Automated exposure control was utilized for the study. A dose lowering technique was ut ilized adhering to the principles of ALARA. CT DOSE: 1128.97 mGy.cm FINDINGS: Multiple bilateral pulmonary emboli are noted, more extensive on the left. These include e mboli within the distal left and right pulmonary arteries. No CT evidence for right heart strain. Sev eral emboli appear adherent to the wall. In addition, there are are linear filling defects suggestive of chronic emboli within the right lower lobe pulmonary artery extending into segmental branches of the right lower lobe. Trace right pleural effusion is noted. Subpleural right lower lobe opacity coul d reflect atelectasis. Underlying small pulmonary infarct within the right lower lobe cannot be exclu ded. Mild left lower lobe airspace opacity favors atelectasis. The esophagus is mildly dilated. Promi nent bilateral axillary lymph nodes are noted, including a mildly enlarged left axillary lymph node t hat measures 2.3 x 1.2 cm. Probable hepatic steatosis is noted. IMPRESSION: 1. Numerous bilateral pulmonary emboli, more extensive on the left. These emboli are age indeterminat e and could reflect acute and chronic pulmonary emboli. No CT evidence for right heart strain. 2. Trace right pleural effusion. Right lower lobe airspace opacity which favors atelectasis although a small pulmonary infarct could appear similar. 3. Prominent bilateral axillary lymph nodes, including a mildly enlarged left axillary lymph node. Th davi nodes are nonspecific. ACT 112: Negative or not required by law. Electronically signed by: Ho Ramsey M.D. 04/03/2022 2:49 PM
[2022-04-03] MEDS ORDERED: HEPARIN SOD (PORCINE) 1000 UNIT/ML IV ONE (15:07)
[2022-04-03] MEDS: HEPARIN SODIUM/DEXTROSE 25,000 UNITS/500 ML BAG IV SCH (15:54)
[2022-04-03 16:18] LABS: INR 1.1 (0.9-1.1); Partial Thromboplastin Ratio 0.9; Partial Thromboplastin Time 25.4 Seconds (21.0-31.0); Prothrombin Time 11.2 Seconds (9.0-12.0)
[2022-04-03] MEDS ORDERED: MoRPHine SULFATE 4 MG/ML 1 ML CARP\\VIAL IV STA (16:22)
[2022-04-03] MEDS ORDERED: Heparin IV Adult Wt-Based Standard WITH Bolus Protocol IV SCH (16:30)
--- NOTE | 2022-04-03 17:07 | History & Physical Report ---
Date of Service April 03, 2022 Assessment & Plan (1) Bilateral pulmonary embolism: (2) Right leg DVT: (3) Right leg pain: (4) Schizoaffective disorder: (5) Hypertension: (6) Tobacco abuse: (7) Morbid obesity: Plan This is a 41-year-old male who has a significant past medical history of morbid obesity, HTN, GERD, schizoaffective disorder, mood disorder, tobacco abuse who presents to ER after experiencing worsening right leg pain and edema over the past week. RLE EXTENSIVE DVT Bilateral pulmonary embolism Possible small Right Lower lobe infarct admit to tele possible Eliquis failure? unsure accuracy if pt has been complaint vs possible weight issue with eliquis will place on IV Heparin, pt likely need to transition to coumadin supportive care with rest, elevation pain meds as needed, pain mostly located RLE, no inspiratory pain incentive spirometry saturating well on room air Schizoaffective disorder Patient tearful during exam Mood otherwise stable Continue Depakote and Effexor Hypertension Continue amlodipine Tobacco abuse Smokes 2 packs a day Smoking cessation encouraged Declines nicotine patch Morbid obesity, BMI 53.4 Encourage weight loss and lifestyle modification DVT prophylaxis: IV heparin Dispo: Telemetry PCP: Sean FULL CODE Patient was seen and examined in collaboration with, Dr. Zavala, please see addendum History of Present Illness Chief Complaint: Worsening right leg pain and edema over the past week. Primary Care Provider: Gianni Estrada MD This is a 41-year-old male who has a significant past medical history of morbid obesity, HTN, GERD, schizoaffective disorder, mood disorder, tobacco abuse who presents to ER after experiencing worsening right leg pain and edema over the past week. Of significance patient was seen in the outpatient setting on 03/29 due to redness, warmth and swelling of his right leg. He underwent ultrasound which revealed a DVT in the proximal popliteal vein extending to the calf. He was started on Eliquis therapy. He was also started on Bactrim due to possible concern for cellulitis. Over the past week he feels the swelling might be a little bit worse and he complains of ineffective pain control. He states he has been taking Eliquis as prescribed. He currently resides at [place]. He denies any recent travel, but states when he takes a [employer] bus he is usually on it for an hour and a half. He denies any recent surgery or prior history of DVT. He denies any family history of DVT. He denies any recent fever, chills, sweats, lightheadedness, dizziness, chest pain, cough, hemoptysis, shortness of breath, nausea, vomiting, abdominal pain, changes bowel or urinary habits. He did attribute shortness of breath initially in the ER due to uncontrolled pain. This resolved after getting IV morphine. In ED patient shows extensive right lower extremity DVT with occlusive thrombus in the distal right superficial femoral vein, popliteal vein, posterior tibial veins, peroneal veins and anterior tibial veins. Chest CTA revealed numerous bilateral pulmonary emboli, more extensive on the left. No evidence of right heart strain. Right lower lobe airspace opacity favoring atelectasis but could represent small pulmonary infarct. He was started on IV Heparin. Allergies Allergy/AdvReac Type Severity Reaction Status Date / Time No Known Allergies Allergy Unknown Verified 04/03/22 15:36 Home Medications Medication Instructions Recorded Confirmed Type amlodipine 10 mg tablet 10 mg PO QAM 01/04/22 04/03/22 History divalproex 250 mg tablet,extended 750 mg PO HS 01/04/22 04/03/22 History release 24 hr divalproex 500 mg tablet,extended 500 mg PO QAM 01/04/22 04/03/22 History release 24 hr omeprazole 20 mg capsule,delayed 20 mg PO AMHS 01/04/22 04/03/22 History release paliperidone palmitate 156 mg/mL 156 mg IM MONTHLY 01/04/22 04/03/22 History intramuscular syringe (Invega Sustenna) venlafaxine 75 mg capsule,extended 225 mg PO HS 01/04/22 04/03/22 History release 24 hr apixaban 5 mg tablet (Eliquis) See Rx Instructions .Route .COMPLEX 04/03/22 04/03/22 History sulfamethoxazole 800 1 tab PO BID 04/03/22 04/03/22 History mg-trimethoprim 160 mg tablet Past Med/Surg History Medical History (Updated 04/03/22 @ 20:18 by Radha Rabago PA-C) GERD (gastroesophageal reflux disease) Hypertension Schizoaffective disorder Suicidal ideation Tobacco abuse Surgical History (Updated 04/03/22 @ 17:12 by Ellen Quiñones PA-C) History of cystoscopy Hx laparoscopic cholecystectomy Family History (Updated 04/03/22 @ 17:12 by Ellen Quiñones PA-C) Denies family history of Deep vein thrombosis Pulmonary embolism Social History (Updated 04/03/22 @ 17:13 by Ellen Quiñones PA-C) Smoking Status: Current every day smoker Tobacco Type: Cigarettes packs per day: 2; Hx Alcohol Use: No Hx Substance Use: No Preferred Language: Sami Communication Ability: Effective Head Buyer Tobacco Required: No Beliefs That Will Affect Care: None marital status: Single Current Living Situation: Boarding Home Current Living Situation Comment: [facility] Feels Safe at Home: Yes Safety Concerns: Feels Safe At This Time Assistive Devices: Glasses Review of Systems Review of Systems: All systems reviewed & are unremarkable except as noted in HPI & below Physical Exam Physical Exam: Constitutional: WD/WN, morbidly obese, vitals as above, NAD, sitting up in bed, pleasant, conversing easily, occasionally tearful during exam Head: Normocephalic, Atraumatic Eyes: PERRL, conjunctivae normal, anicteric sclerae ENMT: external ear and nose normal, oropharynx normal poor dentition Neck: trachea midline, no thyromegaly normal visual inspection Respiratory: normal respiratory effort, lungs clear to auscultation, no wheeze, rales, rhonchi. Normal insp/exp effort, no accessory muscle use Cardiovascular: RRR, no murmur, obese lower extremity, RLE EDEMA with redness and warmth. Vessels: no JVD or carotid bruit Chest: normal inspection of chest Abdomen: normal bowel sounds, soft, nontender, no hepatosplenomegaly Musculoskeletal: no cyanosis or clubbing, extremities motor strength 5/5 Skin: no rashes, warm and dry normal turgor Neurologic: PERRL, EOMI, accommodation nl, no face palsy, no dysarthria CN's II-XI intact bilaterally and moves all extremities Psychiatric: A+Ox3, euthymic affect Lymphatic: no cervical or axillary lymphadenopathy : deferred Results & Data Results & Data ([facility]) Vital Signs (Past 12 Hours) Vital Signs Temp Pulse Pulse Resp BP BP Pulse Ox 04/03/22 15:46 86 20 116/70 96 04/03/22 12:33 74 26 H 96 04/03/22 12:33 74 26 H 133/91 96 04/03/22 12:33 36.6 C 84 28 H 133/91 96 O2 Del Method 04/03/22 15:46 Room Air 04/03/22 12:33 Room Air 04/03/22 12:33 Room Air 04/03/22 12:33 Room Air Diagnostic Findings Venous Doppler Study 04/03/22 12:05 RIGHT LOWER EXTREMITY VENOUS DOPPLER HISTORY: right leg dvt worsening right leg pain COMPARISON STUDY: None. FINDINGS: The right common femoral vein is patent. There is occlusive thrombus identified within the distal right superficial femoral vein, popliteal vein, posterior tibial veins, peroneal veins, and anterior tibial veins. IMPRESSION: Extensive right lower extremity DVT as described above. ACT 112: Negative or not required by law. Electronically signed by: Zana Conner M.D. 04/03/2022 1:57 PM Chest CTA 04/03/22 13:42 CT ANGIOGRAPHY OF THE CHEST, PULMONARY EMBOLUS PROTOCOL CLINICAL HISTORY: dvt right leg, shortness of breath COMPARISON STUDY: No previous studies for comparison. TECHNIQUE: Following IV administration of 119 mL of Optiray, helical axial images of the chest were obtained utilizing the pulmonary embolus protocol. Maximal intensity projections and sagittal and coronal reformats were viewed on an independent 3D workstation. IV contrast was administered without complication. Automated exposure control was utilized for the study. A dose lowering technique was utilized adhering to the principles of ALARA. CT DOSE: 1128.97 mGy.cm FINDINGS: Multiple bilateral pulmonary emboli are noted, more extensive on the left. These include emboli within the distal left and right pulmonary arteries. No CT evidence for right heart strain. Several emboli appear adherent to the wall. In addition, there are are linear filling defects suggestive of chronic emboli within the right lower lobe pulmonary artery extending into segmental branches of the right lower lobe. Trace right pleural effusion is noted. Subpleural right lower lobe opacity could reflect atelectasis. Underlying small pulmonary infarct within the right lower lobe cannot be excluded. Mild left lower lobe airspace opacity favors atelectasis. The esophagus is mildly dilated. Prominent bilateral axillary lymph nodes are noted, including a mildly enlarged left axillary lymph node that measures 2.3 x 1.2 cm. Probable hepatic steatosis is noted. IMPRESSION: 1. Numerous bilateral pulmonary emboli, more extensive on the left. These emboli are age indeterminate and could reflect acute and chronic pulmonary emboli. No CT evidence for right heart strain. 2. Trace right pleural effusion. Right lower lobe airspace opacity which favors atelectasis although a small pulmonary infarct could appear similar. 3. Prominent bilateral axillary lymph nodes, including a mildly enlarged left axillary lymph node. These nodes are nonspecific. ACT 112: Negative or not required by law. Electronically signed by: Ho Ramsey M.D. 04/03/2022 2:49 PM Medications Administered Medication List Heparin Sodium/Dextrose (Heparin Sodium/Dextrose) 25,000 units in 500 mls @ 42 mls/hr IV .[id number] [facility]; Protocol Stop: 05/03/22 15:14 Last Admin: 04/03/22 15:54 Dose: 2,100 units/hr, 42 mls/hr Documented By: RAMA Co-signed By: TOYIN Discontinued Medications Heparin Sodium (Porcine) (Heparin Sod (Porcine) 1000 Unit/Ml) 1 units IV NOW ONE Stop: 04/03/22 15:08 Last Admin: 04/03/22 15:57 Dose: 5,000 units Documented By: RAMA Co-signed By: OTYIN Ioversol (Optiray 320 125ml) 119 ml IV ONCE ONE Stop: 04/03/22 14:25 Last Admin: 04/03/22 14:26 Dose: 119 ml Documented By: BEVERLY Morphine Sulfate (Morphine Sulfate 10 Mg/Ml Carp/Vial) 6 mg IV NOW STA Stop: 04/03/22 12:06 Last Admin: 04/03/22 12:32 Dose: 6 mg Documented By: RAMA Morphine Sulfate (Morphine Sulfate 4 Mg/Ml 1 Ml Carp\Vial) 4 mg IV NOW STA Stop: 04/03/22 16:23 Last Admin: 04/03/22 16:40 Dose: 4 mg Documented By: RAMA ECG Rate (beats per minute): 71 Rhythm: normal sinus COVID-19 Results Results COVID-19 Adm Lab Results: RBC 4.08 M/uL (4.63-6.08) L 04/03/22 WBC 7.72 K/ul (4.8-10.8) 04/03/22 Hgb 13.4 g/dl (14.0-18.0) L 04/03/22 Hct 39.9 % (40.1-51.0) L 04/03/22 Plt Count 465 K/uL (130-400) H 04/03/22 Neutrophils (%) (Auto) 66.8 % 04/03/22 Lymphocytes (%) (Auto) 18.0 % 04/03/22 Monocytes # (Auto) 1.01 K/uL (0.24-0.82) H 04/03/22 Eosinophils # (Auto) 0.10 K/uL (0-0.50) 04/03/22 Immature Granulocyte % (Auto) 0.3 % 04/03/22 Neutrophils # (Auto) 5.16 K/uL (1.4-6.5) 04/03/22 Lymphocytes # (Auto) 1.39 K/uL (1.2-3.4) 04/03/22 Monocytes # (Auto) 1.01 K/uL (0.24-0.82) H 04/03/22 Eosinophils # (Auto) 0.10 K/uL (0-0.50) 04/03/22 Basophils # (Auto) 0.04 K/uL (0-0.2) 04/03/22 Immature Granulocyte # (Auto) 0.02 K/uL (0.00-0.02) 2 Na 141 mmol/L (136-145) 04/03/22 K 4.0 mmol/L (3.5-5.1) 04/03/22 Cl 108 mmol/L (98-107) H 04/03/22 CO2 26 mmol/L (21-32) 04/03/22 Anion Gap 7 (3-11) 04/03/22 BUN 14 mg/dl (6-23) 04/03/22 Creatinine 1.04 mg/dl (0.6-1.4) 04/03/22 BUN/Creatinine Ratio 13.5 (10-20) 04/03/22 Glucose Level 98 mg/dl (70-99(Fasting)) 04/03/22 Ca 8.6 mg/dl (8.5-10.1) 04/03/22 Total Bilirubin 0.3 mg/dl (0.2-1.0) 04/03/22 AST/SGOT 15 U/L (13-39) 04/03/22 ALT/SGPT 17 U/L (7-52) 04/03/22 Alkaline Phosphatase 84 U/L (34-104) 04/03/22 Total Protein 6.6 gm/dl (6.0-8.3) 04/03/22 Albumin 3.5 gm/dl (3.4-5.0) 04/03/22 Globulin 3.1 gm/dl (2.5-4.0) 04/03/22 Albumin/Globulin Ratio 1.1 (0.9-2) 04/03/22 PTT 26.9 Seconds (21.0-31.0) 04/03/22 INR 1.1 (0.9-1.1) 04/03/22 SARS-CoV-2, RNA, NAAT NEGATIVE (NEGATIVE) 04/03/22 Code Status & VTE Plan Code Status FULL CODE VTE Prophylaxis Plan VTE Prophylaxis will be ordered: No Supervising Physician Co-Signing Physician Notes Attending addendum The patient was seen and examined in the emergency room He has been complaining of right leg swelling and was seen in the urgent care setting with an ultrasound noted to have DVT in the right leg He was given Eliquis 5 mg twice daily which he has been taking regularly except he missed 1 dose last night Has been complaining of increasing swelling and pain in the right leg and some shortness of breath with exertion Denies any chest pain and no hemoptysis On examination Obese with minimal distress due to right leg pain without any shortness of breath Hemodynamically stable Chestclear to auscultate bilaterally HeartS1, S2, regular Abdomen-distended, soft and bowel sound present Extremities-right lower extremity swollen with some redness involving the lower part of the leg, warmth feeling and tender to palpate no ulceration and no discharge TRAINING ADMINISTRATOR-alert, awake and oriented Admission labs, EKG and imaging studies reviewed Has extensive right lower leg DVT with pulmonary embolism without any saddle embolus Started on intravenous heparin and Eliquis discontinued Will need to have anticoagulation for at least 6 months-likely with Coumadin and doubt about DOAC given obesity Agree with assessment and plan as outlined above by Ellen zavala
[2022-04-03] MEDS ORDERED: ONDANSETRON INJ 2 MG/ML 2 ML VIAL IV PRN (18:20)
[2022-04-03] MEDS ORDERED: ACETAMINOPHEN 325 MG TAB PO PRN (18:20)
[2022-04-03] MEDS ORDERED: ALUMINUM/MAGNESIUM SUSP 30 ML UDC PO PRN (18:20)
[2022-04-03] MEDS ORDERED: POLYETHYLENE (MIRALAX) 17 GM PACK PO PRN (18:20)
[2022-04-03] MEDS ORDERED: MAGNESIUM HYDROXIDE SUSP 30 ML UDC PO PRN (18:20)
[2022-04-03] MEDS: oxyCODONE HCL IR 5 MG TAB (IMMEDIATE RELEASE) PO PRN (22:04)
[2022-04-03] MEDS: VENLAFAXINE HCL XR 75 MG CAPXR PO SCH (22:04)
[2022-04-03] MEDS: DIVALPROEX EXTENDED RELEASE 250 MG TABCR PO SCH (22:04)
[2022-04-03] MEDS: ACETAMINOPHEN 500 MG TAB PO SCH (22:05)
[2022-04-03 22:32] LABS: Partial Thromboplastin Time 26.9 Seconds (21.0-31.0)
[2022-04-03] MEDS ORDERED: HEPARIN SOD (PORCINE) 1000 UNIT/ML ONE (22:43)
[2022-04-04] MEDS: HEPARIN SODIUM/DEXTROSE 25,000 UNITS/500 ML BAG IV SCH ×3 (04:15→15:02)
[2022-04-04 04:19] LABS: Basophils # (auto) 0.05 K/uL (0-0.2); Basophils % (auto) 0.7 %; Eosinophils # (auto) 0.18 K/uL (0-0.50); Eosinophils % (auto) 2.4 %; Hematocrit (blood only) 37.9 % (40.1-51.0); Hemoglobin 12.6 g/dl (14.0-18.0); Immature Granulocytes # (auto) 0.02 K/uL (0.00-0.02); Immature Granulocytes % (auto) 0.3 %; Lymphocytes # (auto) 2.11 K/uL (1.2-3.4); Lymphocytes % (auto) 28.1 %; Mean Corpuscular Hemoglobin 32.6 pg (25.0-34.0); Mean Corpuscular Hgb Conc 33.2 g/dL (32.0-36.0); Mean Corpuscular Volume 97.9 fL (80.0-100.0); Mean Platelet Volume 8.9 fL (9.4-12.4); Monocytes # (auto) 0.87 K/uL (0.24-0.82); Monocytes % (auto) 11.6 %; Neutrophils # (auto) 4.28 K/uL (1.4-6.5); Neutrophils % (auto) 56.9 %; Platelet Count 429 K/uL (130-400); RDW Coefficient of Variation 12.7 % (11.5-14.5); RDW Standard Deviation 45.5 fL (36.4-46.3); Red Blood Count 3.87 M/uL (4.63-6.08); White Blood Count 7.51 K/ul (4.8-10.8)
[2022-04-04 04:37] LABS: Albumin Globulin Ratio 1.1 (0.9-2); Albumin Level 3.3 gm/dl (3.4-5.0); BUN Creatinine Ratio 14.1 (10-20); Bilirubin,Total 0.4 mg/dl (0.2-1.0); Calcium 8.6 mg/dl (8.5-10.1); Creatinine Clr Calc Pharmacy 160.5 ml/min; Est GFR (African American) 107.7 ml/min; Est GFR (Non-African American) 92.9 ml/min; Globulin 3.1 gm/dl (2.5-4.0); Magnesium 2.1 mg/dl (1.7-2.4); Potassium 3.8 mmol/L (3.5-5.1); Total Protein 6.4 gm/dl (6.0-8.3)
[2022-04-04 04:49] LABS: Partial Thromboplastin Time 54.4 Seconds (21.0-31.0)
[2022-04-04] MEDS: ACETAMINOPHEN 500 MG TAB PO SCH ×4 (09:35→22:09)
[2022-04-04] MEDS: amLODIPine BESYLATE 5 MG TAB PO SCH (09:36)
[2022-04-04] MEDS: PANTOprazole 40 MG TAB PO SCH (09:36)
[2022-04-04] MEDS: DIVALPROEX EXTENDED RELEASE 500 MG TAB PO SCH (09:57)
[2022-04-04 10:30] LABS: Partial Thromboplastin Ratio 1.6; Partial Thromboplastin Time 43.2 Seconds (21.0-31.0)
--- NOTE | 2022-04-04 14:06 | Electrocardiogram Report ---
Test Reason : Blood Pressure : / mmHG Vent. Rate : 071 BPM Atrial Rate : 071 BPM P-R Int : 178 ms QRS Dur : 074 ms QT Int : 392 ms P-R-T Axes : 047 021 046 degrees QTc Int : 425 ms Normal sinus rhythm with sinus arrhythmia Normal ECG No previous ECGs available Confirmed by Yon Mann ([id number]) on 04/04/2022 2:05:35 PM Referred By: REFERRED SELF Confirmed By:Yon Mann
--- NOTE | 2022-04-04 14:32 | Hospitalist Progress Note ---
Date of Service April 04, 2022 Assessment & Plan (1) Bilateral pulmonary embolism: (2) Right leg DVT: (3) Right leg pain: (4) Schizoaffective disorder: (5) Hypertension: (6) Tobacco abuse: (7) Morbid obesity: Plan This is a 41-year-old male who has a significant past medical history of morbid obesity, HTN, GERD, schizoaffective disorder, mood disorder, tobacco abuse who presents to ER after experiencing worsening right leg pain and edema over the past week. RLE EXTENSIVE DVT Bilateral pulmonary embolism Possible small Right Lower lobe infarct admit to tele possible Eliquis failure? unsure accuracy if pt has been complaint vs possible weight issue with eliquis will place on IV Heparin, pt likely need to transition to coumadin - will bridge with lovenox to coumadin given failed eliquis and with patient weight of 178kg - will need coordination for lovenox education and follow up for INR checks in coumadin clinic supportive care with rest, elevation pain meds as needed, pain mostly located RLE, no inspiratory pain incentive spirometry saturating well on room air Schizoaffective disorder Patient tearful during exam Mood otherwise stable Continue Depakote and Effexor Hypertension Continue amlodipine Tobacco abuse Smokes 2 packs a day Smoking cessation encouraged Declines nicotine patch Morbid obesity, BMI 53.4 Encourage weight loss and lifestyle modification DVT prophylaxis: IV heparin Dispo: Telemetry PCP: Sean FULL CODE Kris Negrete MD Hospital Medicine Admission and Anticipated Discharge Date Admission Date: April 03, 2022 Subjective This is a 41-year-old male who has a significant past medical history of morbid obesity, HTN, GERD, schizoaffective disorder, mood disorder, tobacco abuse who presents to ER after experiencing worsening right leg pain and edema over the past week. LLE duplex showed extensive RLE DVT, CTA chest showed multiple bilateral small PEs of varying chronicity. Started on heparin drip in ED. Reports some pain and swelling RLE. Has some subjective shortness of breath but sats are >96% on RA. Denies chest pain, cough, n/v/d, dysuria. Reports taking his medication as prescribed because the boarding home gives them to him. Review of Systems Review of Systems: All systems reviewed & are unremarkable except as noted in Subjective Physical Exam Constitutional: WD/WN, vitals as above + morbidly obese Eyes: PERRL, conjunctivae normal, anicteric sclerae ENMT: external ear and nose normal, oropharynx normal Neck: trachea midline, no thyromegaly Respiratory: normal respiratory effort, lungs clear to auscultation Cardiovascular: RRR, no murmur, no edema Gastrointestinal (Abdomen): normal bowel sounds, soft, nontender, no hepatosplenomegaly Musculoskeletal: no cyanosis or clubbing, extremities motor strength 5/5 (RLE with pitting edema to thigh) Skin: no rashes, warm and dry (edema as described above, some mild erythema) Neurologic: patellar DTR's 2+ bilat, sensation intact and PERRL, EOMI, accommodation nl, no face palsy, no dysarthria Psychiatric: A+Ox3, euthymic affect Results & Data Results & Data ([facility]) Vital Signs (Past 12 Hours) Vital Signs Temp Pulse Resp BP Pulse Ox O2 Del Method 04/04/22 14:05 36.8 C 65 16 112/71 94 Room Air 04/04/22 11:57 68 16 136/78 97 Room Air 04/04/22 09:32 37.0 C 58 L 23 135/88 93 Room Air 04/04/22 05:49 85 15 131/86 97 Room Air Laboratory Results Short CBC 04/04/22 Range/Units 04:05 WBC 7.51 (4.8-10.8) K/ul Hgb 12.6 L (14.0-18.0) g/dl Hct 37.9 L (40.1-51.0) % Plt Count 429 H (130-400) K/uL BMP 04/04/22 04:05 Sodium 138 Potassium 3.8 Chloride 103 Carbon Dioxide 29 BUN 14 Creatinine 0.99 Glucose 93 Calcium 8.6 Liver Function 04/04/22 Range/Units 04:05 Total Bilirubin 0.4 (0.2-1.0) mg/dl AST 16 (13-39) U/L ALT 17 (7-52) U/L Alkaline Phosphatase 83 (34-104) U/L Albumin 3.3 L (3.4-5.0) gm/dl Diagnostic Findings Impressions Venous Doppler Study 04/03/22 12:05 RIGHT LOWER EXTREMITY VENOUS DOPPLER HISTORY: right leg dvt worsening right leg pain COMPARISON STUDY: None. FINDINGS: The right common femoral vein is patent. There is occlusive thrombus identified within the distal right superficial femoral vein, popliteal vein, posterior tibial veins, peroneal veins, and anterior tibial veins. IMPRESSION: Extensive right lower extremity DVT as described above. ACT 112: Negative or not required by law. Electronically signed by: Zana Conner M.D. 04/03/2022 1:57 PM Chest CTA 04/03/22 13:42 CT ANGIOGRAPHY OF THE CHEST, PULMONARY EMBOLUS PROTOCOL CLINICAL HISTORY: dvt right leg, shortness of breath COMPARISON STUDY: No previous studies for comparison. TECHNIQUE: Following IV administration of 119 mL of Optiray, helical axial images of the chest were obtained utilizing the pulmonary embolus protocol. Maximal intensity projections and sagittal and coronal reformats were viewed on an independent 3D workstation. IV contrast was administered without complication. Automated exposure control was utilized for the study. A dose lowering technique was utilized adhering to the principles of ALARA. CT DOSE: 1128.97 mGy.cm FINDINGS: Multiple bilateral pulmonary emboli are noted, more extensive on the left. These include emboli within the distal left and right pulmonary arteries. No CT evidence for right heart strain. Several emboli appear adherent to the wall. In addition, there are are linear filling defects suggestive of chronic emboli within the right lower lobe pulmonary artery extending into segmental branches of the right lower lobe. Trace right pleural effusion is noted. Subpleural right lower lobe opacity could reflect atelectasis. Underlying small pulmonary infarct within the right lower lobe cannot be excluded. Mild left lower lobe airspace opacity favors atelectasis. The esophagus is mildly dilated. Prominent bilateral axillary lymph nodes are noted, including a mildly enlarged left axillary lymph node that measures 2.3 x 1.2 cm. Probable hepatic steatosis is noted. IMPRESSION: 1. Numerous bilateral pulmonary emboli, more extensive on the left. These emboli are age indeterminate and could reflect acute and chronic pulmonary emboli. No CT evidence for right heart strain. 2. Trace right pleural effusion. Right lower lobe airspace opacity which favors atelectasis although a small pulmonary infarct could appear similar. 3. Prominent bilateral axillary lymph nodes, including a mildly enlarged left axillary lymph node. These nodes are nonspecific. ACT 112: Negative or not required by law. Electronically signed by: Ho Ramsey M.D. 04/03/2022 2:49 PM Medications Administered Current Inpatient Medications Acetaminophen (Acetaminophen 325 Mg Tab) 650 mg PO Q4H PRN PRN Reason: Pain or Fever Stop: 05/03/22 18:19 Acetaminophen (Acetaminophen 500 Mg Tab) 500 mg PO QID [facility] Stop: 05/03/22 20:59 Last Admin: 04/04/22 13:09 Dose: 500 mg Al Hydrox/Mg Hydrox/Simethicone (Aluminum/Magnesium Susp 30 Ml Udc) 15 ml PO Q4H PRN PRN Reason: Dyspepsia Stop: 05/03/22 18:19 Amlodipine Besylate (Amlodipine Besylate 5 Mg Tab) 10 mg PO QAM [facility] Stop: 05/04/22 08:59 Last Admin: 04/04/22 09:36 Dose: 10 mg Divalproex Sodium (Divalproex Extended Release 500 Mg Tab) 500 mg PO QAM [facility] Stop: 05/04/22 08:59 Last Admin: 04/04/22 09:57 Dose: 500 mg Divalproex Sodium (Divalproex Extended Release 250 Mg Tabcr) 750 mg PO HS [facility] Stop: 05/03/22 20:59 Last Admin: 04/03/22 22:04 Dose: 750 mg Heparin Sodium/Dextrose (Heparin Sodium/Dextrose) 25,000 units in 500 mls @ 49 mls/hr IV .[id number] [facility]; Protocol Stop: 05/03/22 15:14 Last Admin: 04/04/22 11:50 Dose: 2,550 units/hr, 51 mls/hr Magnesium Hydroxide (Magnesium Hydroxide Susp 30 Ml Udc) 30 ml PO Q12H PRN PRN Reason: Constipation Stop: 05/03/22 18:19 Ondansetron HCl (Ondansetron Inj 2 Mg/Ml 2 Ml Vial) 4 mg IV Q6H PRN PRN Reason: Nausea Stop: 05/03/22 18:19 Oxycodone HCl (Oxycodone Hcl Ir 5 Mg Tab (Immediate Release)) 5 mg PO Q6H PRN PRN Reason: severe pain ( 7,8, 9,10) Stop: 04/17/22 18:19 Last Admin: 04/03/22 22:04 Dose: 5 mg Pantoprazole Sodium (Pantoprazole 40 Mg Tab) 40 mg PO DAILY [facility]; Protocol Stop: 05/04/22 08:59 Last Admin: 04/04/22 09:36 Dose: 40 mg Polyethylene Glycol (Polyethylene (Miralax) 17 Gm Pack) 17 gm PO DAILY PRN PRN Reason: Constipation Stop: 05/03/22 18:19 Venlafaxine HCl (Venlafaxine Hcl Xr 75 Mg Capxr) 225 mg PO HS [facility] Stop: 05/03/22 20:59 Last Admin: 04/03/22 22:04 Dose: 225 mg
[2022-04-04] MEDS: ENOXAPARIN 80 MG/0.8 ML SYR SQ SCH (15:42)
[2022-04-04] MEDS: ENOXAPARIN 100 MG/1ML SYR SQ SCH (15:43)
[2022-04-04] MEDS ORDERED: WARFARIN SOD 10 MG TAB PO SCH (16:00)
--- NOTE | 2022-04-04 16:22 | Pulmonary Consultation ---
Date of Consultation April 04, 2022 Assessment & Plan (1) Bilateral pulmonary embolism: (2) Right leg DVT: (3) Tobacco abuse: Plan CT chest 04/03/2022 personally reviewed: Bilateral pulmonary emboli Dependent atelectasis bilateral lower lobes No mediastinal lymphadenopathy No right heart strain appreciated on the CT chest -- Acute PE with acute right lower extremity DVT sPESI score 0 Low risk Seems to be unprovoked Hypercoagulable work-up as an outpatient Patient did get apixaban as an outpatient on 03/29/2022 when he was diagnosed with DVT. I would not consider this is a failure of apixaban given that he already had a DVT when he was started and now he has PE. But his BMI does make him high risk to be on DOACs Would recommend to get an input from hematology as well but that they would like to continue with apixaban or changed to dabigatran vs Warfarin. Continue with heparin drip --Active smoker Importance of quitting explained to the patient in depth --Morbid obesity with probable SAMI Outpatient polysomnography Plan: Continue with heparin drip. No indication for tPA Incentive spirometer will be beneficial for the patient Agree with transition to warfarin for the time being. Would recommend getting input from hematology as well Please note the above document was generated using voice recognition software. It may contain grammatical, syntax or spelling errors.Any formal questions or concerns about the content, text or information contained within the body of this dictation should be directly addressed to the provider for clarification. History of Present Illness Attending Physician: Kris Negrete MD History of Present Illness 41-year-old male presented to the hospital with shortness of breath and chest pain Past medical history: Hypertension, morbid obesity, GERD, schizoaffective di sorder, tobacco abuse In the ED patient was found to have pulmonary embolism as well as right lower extremity DVT. Patient was being treated recently with antibiotics for cellulitis. He also was diagnosed with right lower extremity DVT and has been on Eliquis since then. At the time of examination patient denies any issues with his breathing. He is saturating 94-95% on room air Denies any chest pain No headache, no nausea, no vomiting No hematuria, no hematochezia. No fever or chills No recent travel history. There is no family history of clots. Social history: Active smoker 1-2 packs a day. Allergies Allergy/AdvReac Type Severity Reaction Status Date / Time No Known Allergies Allergy Unknown Verified 04/03/22 15:36 Home Medications Medication Instructions Recorded Confirmed Type amlodipine 10 mg tablet 10 mg PO QAM 01/04/22 04/03/22 History divalproex 250 mg tablet,extended 750 mg PO HS 01/04/22 04/03/22 History release 24 hr divalproex 500 mg tablet,extended 500 mg PO QAM 01/04/22 04/03/22 History release 24 hr omeprazole 20 mg capsule,delayed 20 mg PO AMHS 01/04/22 04/03/22 History release paliperidone palmitate 156 mg/mL 156 mg IM MONTHLY 01/04/22 04/03/22 History intramuscular syringe (Invega Sustenna) venlafaxine 75 mg capsule,extended 225 mg PO HS 01/04/22 04/03/22 History release 24 hr enoxaparin 100 mg/mL subcutaneous 100 mg subcut Q12H #10 mL 04/05/22 Rx syringe (Lovenox) enoxaparin 80 mg/0.8 mL 80 mg (0.8 mL) subcut Q12H #8 mL 04/05/22 Rx subcutaneous syringe (Lovenox) warfarin 10 mg tablet 10 mg PO HS #7 tabs 04/05/22 Rx Patient History Medical History (Updated 04/03/22 @ 20:18 by Radha Rabago PA-C) GERD (gastroesophageal reflux disease) Hypertension Schizoaffective disorder Suicidal ideation Tobacco abuse Surgical History (Updated 04/03/22 @ 17:12 by Ellen Quiñones PA-C) History of cystoscopy Hx laparoscopic cholecystectomy Family History (Updated 04/03/22 @ 17:12 by Ellen Quiñones PA-C) Denies family history of Deep vein thrombosis Pulmonary embolism Social History (Updated 04/03/22 @ 17:13 by Ellen Quiñones PA-C) Smoking Status: Current every day smoker Tobacco Type: Cigarettes packs per day: 2; Hx Alcohol Use: No Hx Substance Use: No Preferred Language: Kazakh Communication Ability: Effective Client Evaluator Required: No Beliefs That Will Affect Care: None marital status: Single Current Living Situation: Boarding Home Current Living Situation Comment: [facility] Feels Safe at Home: Yes Assistive Devices: None Review of Systems Review of Systems: All systems reviewed & are unremarkable except as noted in HPI & below Physical Exam Physical Exam: Constitutional: No acute distress HEENT: EOMI, PERRLA Respiratory system: Decreased air entry bilaterally, no wheeze, no ABLA, mild crackles bilateral lower lobes CVS: S1-S2 positive, no murmurs or gallops, distant heart sound Abdomen: Soft, nontender, nondistended, positive bowel sounds x4, obese Extremities: +2 pulses bilaterally radialis/ dorsalis pedis, no cyanosis, positive edema bilateral lower extremity Neuro: Awake alert oriented x3 Psych: Normal mood and affect G/U: No Menard Skin: no rashes, warm and dry Lymphatic: no cervical or axillary lymphadenopathy Results & Data Results & Data ([facility]) Vital Signs (Past 12 Hours) Vital Signs Temp Pulse Pulse Resp BP Pulse Ox O2 Del Method 04/04/22 15:31 51 L 04/04/22 14:04 64 04/04/22 15:09 Room Air 04/04/22 14:05 36.8 C 65 16 112/71 94 Room Air 04/04/22 11:57 68 16 136/78 97 Room Air 04/04/22 09:32 37.0 C 58 L 23 135/88 93 Room Air 04/04/22 05:49 85 15 131/86 97 Room Air Laboratory Results 04/04/22 04:05 04/04/22 04:05 PG Care Time/CCT Total # of Minutes Spent Total Time Spent with Patient: Total time spent is greater than 50% in coordination of care (as documented) at patient's floor/unit and/or counseling patient: Coding Level of Care Code 87690 Initial Inpt Care Lvl 3 Diagnoses Bilateral pulmonary embolism I26.99 Right leg DVT I82.401 Tobacco abuse Z72.0
[2022-04-04] MEDS: VENLAFAXINE HCL XR 75 MG CAPXR PO SCH (22:06)
[2022-04-04] MEDS: DIVALPROEX EXTENDED RELEASE 250 MG TABCR PO SCH (22:06)
[2022-04-05] MEDS: ENOXAPARIN 100 MG/1ML SYR SQ SCH (03:39)
[2022-04-05] MEDS: ENOXAPARIN 80 MG/0.8 ML SYR SQ SCH (03:39)
[2022-04-05 06:33] LABS: Prothrombin Time 11.1 Seconds (9.0-12.0)
[2022-04-05] MEDS: DIVALPROEX EXTENDED RELEASE 500 MG TAB PO SCH (08:55)
[2022-04-05] MEDS: amLODIPine BESYLATE 5 MG TAB PO SCH (08:56)
[2022-04-05] MEDS: PANTOprazole 40 MG TAB PO SCH (08:56)
[2022-04-05] MEDS: ACETAMINOPHEN 500 MG TAB PO SCH (08:59)
[2022-04-05] MEDS: oxyCODONE HCL IR 5 MG TAB (IMMEDIATE RELEASE) PO PRN (08:59)
--- NOTE | 2022-04-05 11:02 | Discharge Summary ---
Date of Service April 05, 2022 Admission HPI Per Admitting Provider This is a 41-year-old male who has a significant past medical history of morbid obesity, HTN, GERD, schizoaffective disorder, mood disorder, tobacco abuse who presents to ER after experiencing worsening right leg pain and edema over the past week. Of significance patient was seen in the outpatient setting on 03/29 due to redness, warmth and swelling of his right leg. He underwent ultrasound which revealed a DVT in the proximal popliteal vein extending to the calf. He was started on Eliquis therapy. He was also started on Bactrim due to possible concern for cellulitis. Over the past week he feels the swelling might be a little bit worse and he complains of ineffective pain control. He states he has been taking Eliquis as prescribed. He currently resides at [place]. He denies any recent travel, but states when he takes a [employer] bus he is usually on it for an hour and a half. He denies any recent surgery or prior history of DVT. He denies any family history of DVT. He denies any recent fever, chills, sweats, lightheadedness, dizziness, chest pain, cough, hemoptysis, shortness of breath, nausea, vomiting, abdominal pain, changes bowel or urinary habits. He did attribute shortness of breath initially in the ER due to uncontrolled pain. This resolved after getting IV morphine. In ED patient shows extensive right lower extremity DVT with occlusive thrombus in the distal right superficial femoral vein, popliteal vein, posterior tibial veins, peroneal veins and anterior tibial veins. Chest CTA revealed numerous bilateral pulmonary emboli, more extensive on the left. No evidence of right heart strain. Right lower lobe airspace opacity favoring atelectasis but could represent small pulmonary infarct. He was started on IV Heparin. Admission Exam Per Admitting Provider Constitutional: WD/WN, morbidly obese, vitals as above, NAD, sitting up in bed, pleasant, conversing easily, occasionally tearful during exam Head: Normocephalic, Atraumatic Eyes: PERRL, conjunctivae normal, anicteric sclerae ENMT: external ear and nose normal, oropharynx normal poor dentition Neck: trachea midline, no thyromegaly normal visual inspection Respiratory: normal respiratory effort, lungs clear to auscultation, no wheeze, rales, rhonchi. Normal insp/exp effort, no accessory muscle use Cardiovascular: RRR, no murmur, obese lower extremity, RLE EDEMA with redness and warmth. Vessels: no JVD or carotid bruit Chest: normal inspection of chest Abdomen: normal bowel sounds, soft, nontender, no hepatosplenomegaly Musculoskeletal: no cyanosis or clubbing, extremities motor strength 5/5 Skin: no rashes, warm and dry normal turgor Neurologic: PERRL, EOMI, accommodation nl, no face palsy, no dysarthria CN's II-XI intact bilaterally and moves all extremities Psychiatric: A+Ox3, euthymic affect Lymphatic: no cervical or axillary lymphadenopathy : deferred Principal Diagnosis acute DVT/PE Discharge Exam Constitutional WD/WN, vitals as above + morbidly obese Eyes PERRL, conjunctivae normal, anicteric sclerae ENMT external ear and nose normal, oropharynx normal Neck trachea midline, no thyromegaly Respiratory normal respiratory effort, lungs clear to auscultation Cardiovascular RRR, no murmur, no edema Gastrointestinal (Abdomen) normal bowel sounds, soft, nontender, no hepatosplenomegaly Musculoskeletal no cyanosis or clubbing, extremities motor strength 5/5 (RLE with pitting edema to thigh) Skin no rashes, warm and dry (edema as described above, some mild erythema) Neurologic patellar DTR's 2+ bilat, sensation intact and PERRL, EOMI, accommodation nl, no face palsy, no dysarthria Psychiatric A+Ox3, euthymic affect Discharge Data Allergies Allergy/AdvReac Type Severity Reaction Status Date / Time No Known Allergies Allergy Unknown Verified 04/03/22 15:36 Consultations 04/03/22 15:06 ED Decision to Admit Stat 04/03/22 18:20 Consult Pulmonology Routine 04/05/22 08:00 Consult Cardiology Routine Ordered Studies 04/03/22 12:05 US venous doppler LE RT Stat 04/03/22 13:42 CT angio chest PE protocol Stat Hospital Course (1) Bilateral pulmonary embolism: (2) Right leg DVT: (3) Right leg pain: (4) Schizoaffective disorder: (5) Hypertension: (6) Tobacco abuse: (7) Morbid obesity: Plan This is a 41-year-old male who has a significant past medical history of morbid obesity, HTN, GERD, schizoaffective disorder, mood disorder, tobacco abuse who presents to ER after experiencing worsening right leg pain and edema over the past week. LLE duplex showed extensive RLE DVT, CTA chest showed multiple bilateral small PEs of varying chronicity. Started on heparin drip in ED. Transitioned to lovenox SC BID 180mg with 10mg qhs warfarin. Plan to bridge with lovenox, teaching on administering Lovenox done and showed competence. Ok for discharge with follow up in [facility] clinic 04/07/2022. RLE EXTENSIVE DVT Bilateral pulmonary embolism Possible small Right Lower lobe infarct admit to tele possible Eliquis failure? unsure accuracy if pt has been complaint vs possible weight issue with eliquis will place on IV Heparin, pt likely need to transition to coumadin - will bridge with lovenox to coumadin given failed eliquis and with patient weight of 178kg - will need coordination for lovenox education and follow up for INR checks in coumadin clinic supportive care with rest, elevation pain meds as needed, pain mostly located RLE, no inspiratory pain incentive spirometry saturating well on room air Schizoaffective disorder Patient tearful during exam Mood otherwise stable Continue Depakote and Effexor Hypertension Continue amlodipine Tobacco abuse Smokes 2 packs a day Smoking cessation encouraged Declines nicotine patch Morbid obesity, BMI 53.4 Encourage weight loss and lifestyle modification DVT prophylaxis: IV heparin Dispo: Telemetry PCP: Sean FULL CODE Kris Negrete MD [facility] Medicine Total Time Total Time Spent Total Time Spent (In Minutes): 25 minutes. Total Time Includes: Examination of the Patient, Discharge Planning and Medication Reconciliation Discharge Plan Discharge Items Patient Disposition: Home - Self-Care Reason For Visit: DVT/PE Discharge Diagnosis: DVT/PE Activity: Resume your previous activity Non-emergency contact: Primary Care Provider and Specialist Call non-emergency contact if: you have any medication questions, your symptoms worsen, your pain is not controlled and you have a fever Follow-up/Referrals: Nolvia Norman MD, PhD [Pathologist] - 04/11/22 9:00 am (You have an appt. with Dr. Norman on April 11 at 9:00am to discuss your Lovenox and Coumadin.) Gianni Estrada MD [Primary Care Provider] - Diet: Heart Healthy Addtl Attending Provider Instructions: You were admitted due to worsening right lower extremity Deep venous thrombosis (blood clot) and new pulmonary emboli (pulmonary blood clots) after failing treatment with Eliquis. You were started on lovenox injections and warfarin pill medication as a new blood thinner. You will need to follow up with hematology to help manage this new medication, warfarin (coumadin) becuse the levels need to be monitored closely in the blood. You should have follow up on 04/07/2022 in [place]. Pending Studies at Discharge: No Stand-Alone Forms: [facility], Smoking Cessation Medications and DC Order Prescriptions: New enoxaparin 100 mg/mL Syringe 100 mg subcut Q12H Qty: 10 1RF enoxaparin [Lovenox] 80 mg/0.8 mL Syringe 80 mg subcut Q12H Qty: 8 1RF warfarin 10 mg Tablet 10 mg PO DAILY@1600 Qty: 7 0RF enoxaparin [Lovenox] 100 mg/mL syringe 100 mg subcut Q12H Qty: 10 1RF enoxaparin [Lovenox] 80 mg/0.8 mL syringe 80 mg subcut Q12H Qty: 8 1RF warfarin 10 mg tablet 10 mg PO HS Qty: 7 0RF Continued venlafaxine 75 mg capsule,extended release 24hr 225 mg PO HS divalproex 500 mg tablet extended release 24 hr 500 mg PO QAM amlodipine 10 mg tablet 10 mg PO QAM omeprazole 20 mg capsule,delayed release(DR/EC) 20 mg PO AMHS Invega Sustenna 156 mg/mL syringe 156 mg IM MONTHLY divalproex 250 mg tablet extended release 24 hr 750 mg PO HS Discontinued sulfamethoxazole-trimethoprim 800-160 mg tablet 1 tab PO BID Rx Instructions: ordered 03/29/22 take for 7 days Eliquis 5 mg tablet See Rx Instructions .ROUTE .COMPLEX Rx Instructions: ordered on 03/29/22 take 2 tablets orally twice a day for 7 days then 1 tablet twice a day thereafter Discharge Orders: Discharge Order (Routine); Ordered 04/05/22 Ordered By: Kris Tapia/Other Patient Handouts: What to Know When TakingWarfarin, DVT Dc, Pulmonary Embolism Dc Admission Data Admit Date/Time: 04/03/22 15:40 Attending Provider: Kris Negrete Admit Provider: Genevieve De La Paz Primary Care Provider: Gianni Estrada Other Providers: Ellen Quiñones ; Genevieve De La Paz ; Francesco Colindres ; El Ellis ; Endy Villegas ; Manuel Davenport ; Santos Dunne ; Paco Miller ; Gianni Mckenzie ; Marissa Lopez ; Nohemi Alas ; Brook Jorge ; Rajiv Isaac Other Interventions: Discharge Summary Assessment (RN) Last Done: 04/05/22 10:04
--- NOTE | 2022-04-05 12:29 | Electrocardiogram Report ---
Test Reason : Blood Pressure : / mmHG Vent. Rate : 061 BPM Atrial Rate : 061 BPM P-R Int : 184 ms QRS Dur : 086 ms QT Int : 512 ms P-R-T Axes : 033 043 047 degrees QTc Int : 515 ms Normal sinus rhythm with sinus arrhythmia Cannot rule out Anterior infarct , age undetermined Prolonged QT Abnormal ECG When compared with ECG of 03-APR-2022 11:56, Loss of R wave in V3, may be lead placement related Confirmed by Kush Brown ([id number]) on 04/05/2022 12:28:28 PM Referred By: REFERRED SELF Confirmed By:Kush Brown
--- NOTE | 2022-04-05 12:33 | Electrocardiogram Report ---
Test Reason : Blood Pressure : / mmHG Vent. Rate : 065 BPM Atrial Rate : 065 BPM P-R Int : 184 ms QRS Dur : 094 ms QT Int : 540 ms P-R-T Axes : 035 046 059 degrees QTc Int : 561 ms Sinus rhythm with occasional , and consecutive Premature ventricular complexes Prolonged QT Abnormal ECG When compared with ECG of 04-APR-2022 15:40, Premature ventricular complexes are now Present Minimal criteria for Anterior infarct are no longer Present Confirmed by Kush Brown ([id number]) on 04/05/2022 12:32:46 PM Referred By: REFERRED SELF Confirmed By:Kush Brown
== END 2022-04-05 10:48 | disposition home or self-care (01) | DRG 299 ==
LOC: ED 11:49 → SUATTDRO 15:40 → EDINP 15:40 → 2W 18:20